=== PATIENT | female | born 1980 | race Caucasian/White ===

== ENCOUNTER 2016-07-27 07:53 | Inpatient (IN) ==
[2016-07-27] MEDS ORDERED: NITROGLYCERIN SL 0.4 MG TABLET SL PRN (08:09)
[2016-07-27] MEDS ORDERED: ASPIRIN 325 MG TABLET PO STA (08:09)
[2016-07-27] MEDS ORDERED: NITROGLYCERIN 2% OINT 1 INCH/GM PACK TOP STA (08:09)
[2016-07-27] MEDS ORDERED: ENOXAPARIN 100 MG/ML SYRINGE SUBCUT STA (08:09)
[2016-07-27] MEDS ORDERED: ALUM/MAG/SIMETH/LIDO VISC 1:1 30 ML BOTTLE PO STA (08:09)
[2016-07-27] MEDS ORDERED: ONDANSETRON 4 MG/2 ML VIAL IV PRN ×2 (08:09→11:07)
--- NOTE | 2016-07-27 08:14 | Emergency Department Note ---
Cora Muñiz Brittany, am scribing for, and in the presence of, Alfonso Shell MD 08: 12. Sumaya Muñiz James D, MD, personally performed the services described in this documentation, ascribed by Tianna Shepherd in my presence, and it is both accurate and complete 814 . Arrival - Arrival Chief Complaint: Chest Pain Stated Complaint: Chest Pains ED Nursing Triage Note: pain in center of chest that feels like something is sitting on her chest. started yesterday was worse when she woke up this morning. pain is worse with a deep breath. denies having been sick with a cough or cold. Mode of Arrival: Ambulatory Limitations: No Limitations Source: Patient - History of Present Illness HPI Narrative: This is a 35 y/o female,who presents to the ED with c/o CP which started yesterday. She reports the chest pain got worse this morning. She localizes the pain to the center of the chest. She describes the pain as a tightness and "something sitting on her chest." Per pt, " If I were to get up and walk, after a few minutes I would be winded." She reports diaphoresis with the CP, but states, as well, "That's not fair because I get sweaty easily." Pt reports seeing her PCP, Dr. Bae, "a few weeks ago" and everything was normal. Pt has no other complaints/pain in the ED at this time. Pt has a PMHx of HTN and kidney stones. Pt has had a tonsilectomy and knee surgery. Pt has a family medical Hx of heart disease. Pt is a former smoker, she quite 2 years ago, and reports she smoked 1/2 PPD. Onset (ago): day(s) (Started yesterday) Consistency: constant Severity: moderate Quality: other (Pressure) Allergies/Adverse Reactions: Allergies Allergy/AdvReac Type Severity Reaction Status Date / Time metoclopramide [From Reglan] AdvReac Irritable Verified 05/04/16 14:18 prochlorperazine AdvReac Irritable Verified 05/04/16 14:18 [From Compazine] Home Medications: Home Medications Medication Instructions Recorded Confirmed Type HYDROcodone/ACETAMIN 10-325 [[place] 1 tablet PO Q6H #20 tablet 03/13/15 Rx 10-325] Ibuprofen Tab [Motrin Tab] 800 mg PO Q6H #40 tablet 03/13/15 Rx HYDROcodone/ACETAMIN 5-325 [[place] 1 tablet PO Q6H #15 tablet 08/20/15 Rx 5-325] Naproxen Sodium [Naproxen Sodium 220 mg PO Q8H #30 capsule 08/20/15 Rx Cap] methylPREDNISolone DOSEPAK [Medrol 4 mg PO DIRECTED #1 pack 10/01/15 Rx Dosepak] Naproxen [Naprosyn] 500 mg PO Q12H #30 tablet 05/04/16 Rx Review of System - Review of System 12 point system: reviewed and no additional remarkable complaints except as stated - Review of System Constitutional: Present: diaphoresis Respiratory: Present: cough Cardiovascular: Present: chest pain, dyspnea on exertion Medical,Surgical,& Family Hx - Medical History Cardio: History of: Hypertension HEENT: History of: HEENT Problems (sinus surg) Genitourinary: History of: Kidney Stones Musculoskeletal: History of: Musculoskeletal Problems (Knee surg) - Surgical History HEENT Surgeries: Surgical HX of: Tonsilectomy & Adenoidectomy Orthopedic Surgeries: Surgical HX of;: Orthopedic Surgery (Knee surgery) - Social History Smoking Status: Never smoker Exam Vital Signs: Vital Signs Temperature 98.1 F 07/27/16 07:55 Pulse Rate 104 H 07/27/16 07:55 Respiratory Rate 20 07/27/16 07:55 Blood Pressure 174/107 07/27/16 07:55 O2 Sat by Pulse Oximetry 100 07/27/16 07:55 GENERAL: This is a well-nourished well-developed morbidly obese white female in no apparent distress. VITAL SIGNS: Reviewed HEENT: Head is atraumatic and normocephalic. Pupils are equal round react to light. Extraocular movements are intact. Oropharynx is benign with moist mucous membranes. NECK: Neck is soft and supple without tenderness. There are no masses. There is no lymphadenopathy. LUNGS: Lungs are clear to auscultation. Chest rises symmetrically. There is no chest wall tenderness. CV: Heart is regular rate and rhythm without murmurs rubs or gallops. ABDOMEN: Abdomen is soft, nontender to palpation. There are no abdominal abnormal masses palpated. There is no organomegaly. Bowel sounds are present and active. SKIN: Skin is warm and dry. No rash. EXTREMITIES: Patient has full range of motion without tenderness. There is no pedal edema. NEUROLOGIC: Awake alert and oriented 4. Cranial nerves II through XII are grossly intact. Motor is 5 over 5 in all extremities bilaterally. Results - Labs CBC & BMP: 07/27/16 08:09 07/27/16 08:09 Lab Results: I have reviewed the patients labs - EKG EKG results: interpreted by ERMD - Impressions EKG: Normal sinus rhythm with rate of 97, nonspecific ST-T wave changes, normal axis. - Diagnostic Findings Procedure: Chest x-ray: image reviewed by me Disposition Clinical Impression: Chest pain, Essential hypertension Case discussed with: patient Disposition: Still a Patient Condition: Stable
[2016-07-27] MEDS ORDERED: ENOXAPARIN 120 MG/0.8 ML SYRINGE SUBCUT ONE (08:21)
[2016-07-27] MEDS ORDERED: ASPIRIN 325 MG TABLET ONE (08:22)
[2016-07-27] MEDS ORDERED: NITROGLYCERIN 2% OINT 1 INCH/GM PACK TOP ONE (08:22)
[2016-07-27] MEDS ORDERED: ALUM/MAG/SIMETH/LIDO VISC 1:1 30 ML BOTTLE PO ONE (08:22)
[2016-07-27 08:24] LABS: Basophils # 0.1 10*3/uL (0.0-0.2); Basophils % 0.9 % (0.0-0.8); Eosinophils # 0.3 10*3/uL (0.0-0.87); Eosinophils % 3.1 % (0.00-10.9); Hematocrit 43.7 VOL% (35.7-47.0); Hemoglobin 14.5 GM/DL (12.0-16.0); Immature Granulocytes % 0.4 %; Immature Granulocytes Absolute 0.04 #; Lymphocytes % 19.1 % (21.3-54.2); Mean Corpuscular HGB Conc 33.2 GM/DL (32-36); Mean Corpuscular Hemoglobin 29 PG (27-34); Mean Corpuscular Volume 88.5 FL (87-102); Mean Platelet Volume 8.7 FL (9.6-12.0); Monocytes # 0.5 10*3/uL (0.11-0.8); Monocytes % 5.1 % (1.7-12.7); Neutrophils # 7.5 10*3/uL (1.4-7.4); Neutrophils % 71.4 % (38.7-73.9); Platelet Count 374 T/CUMM (130-400); Red Blood Count 4.94 MC/CUMM (3.8-5.5); Red Cell Distribution Width 12.6 % (9.3-17.3); White Blood Count 10.5 T/CUMM (4-12)
[2016-07-27 08:35] LABS: PT Patient Result 10.7 SECS; Partial Thromboplastin Time 27.3 SECS (0-40)
--- NOTE | 2016-07-27 08:40 | XRay Report ---
XR chest 2V Indication: Chest pain. Chest 2 views: Comparison 10/01/2015. Normal heart size and mediastinal contour, clear lungs and obesity are again shown. No new infiltrates are seen. Impression: No acute cardiopulmonary disease. PROCEDURE INTERPRETED AT [facility] DEPARTMENT OF RADIOLOGY Final Report Signed by: Joshua Garner M.D.
[2016-07-27 08:59] LABS: Albumin 4.1 G/DL (3.4-5.0); Bilirubin,Total 0.4 MG/DL (0.2-1.0); Osmolality,Calculated 288.8 MOS/KG (273-304); Total Protein 7.6 G/DL (6.4-8.3)
[2016-07-27] MEDS ORDERED: ACETAMINOPHEN 325 MG TABLET PO PRN (11:07)
[2016-07-27] MEDS: SODIUM CHLORIDE 0.9% 1,000 ML IV SCH ×2 (11:34→19:57)
--- NOTE | 2016-07-27 13:15 | EKG Report ---
Stationary ECG Study [facility] ER Test Date: 07/27/2016 8:01:45 AM Pat Name: FLORA SOSA Department: Room: 293 Gender: F Leather Cleaner: : 1980 Requested by: Alfonso Cho Order Number: [id number] Reading MD: MEENU BLEDSOE Intervals [place] Rate: 97 P: 54 ND: 151 QRS: 74 QRSD: 105 T: 14 QT: 316 QTc: 370 Interpretive Statements SINUS RHYTHM Electronically Signed On 07-28-16 06:54:30 CDT by MEENU BLEDSOE [email or web address]
--- NOTE | 2016-07-27 13:18 | EKG Report ---
Stationary ECG Study [facility] Test Date: 07/27/2016 12:18:56 PM Pat Name: FLORA SOSA Department: Room: 293 Gender: F Nurse Clinician: JES : 1980 Requested by: Alfonso Cho Order Number: [id number] Erica MD: CHARBEL BLANCA Intervals [place] Rate: 75 P: 4 AL: 158 QRS: 107 QRSD: 108 T: 1 QT: 352 QTc: 382 Interpretive Statements SINUS RHYTHM MARKED RIGHT AXIS DEVIATION Electronically Signed On 07-28-16 12:16:35 CDT by CHARBEL BLANCA [email or web address]
[2016-07-27] MEDS ORDERED: NITROGLYCERIN 2% OINT 1 INCH/GM PACK TOP SCH (14:00)
--- NOTE | 2016-07-27 14:25 | EKG Report ---
Stationary ECG Study [facility] Test Date: 07/27/2016 2:24:49 PM Pat Name: FLORA SOSA Department: Room: 293 Gender: F Tie Layer: JES : 1980 Requested by: Alfonso Cho Order Number: [id number] Reading MD: CHARBEL BLANCA Intervals [place] Rate: 77 P: 35 [place]: 149 QRS: 106 QRSD: 112 T: -2 QT: 358 QTc: 390 Interpretive Statements SINUS RHYTHM MARKED RIGHT AXIS DEVIATION MODERATE INTRAVENTRICULAR CONDUCTION DELAY Electronically Signed On 07-28-16 12:20:05 CDT by CHARBEL BLANCA [email or web address]
--- NOTE | 2016-07-27 14:32 | Cardiology Consult Note ---
<Daphnie Martinez E - Last Filed: 07/27/16 14:24> Assessment and Plan - Time spent with patient Time spent with patient: Greater than 30 minutes (1) Obesity Status: Chronic Assessment and plan: Dietary counseling prior to discharge. Will check TSH Current Visit: Yes (2) Sleep disorder Status: Chronic Assessment and plan: Consult Dr. Riya Adam Current Visit: Yes (3) Chest pain Status: Acute Assessment and plan: See plan of care listed below Current Visit: Yes (4) Essential hypertension Status: Chronic Assessment and plan: See plan of care listed below Current Visit: Yes History of Present Illness - Data of Consult Patient: new to practice Consult date: 07/27/16 Requesting Physician: Umesh Bae Primary care physician: Umesh Bae - Consult Narrative Reason for consult: Chest pain History of present illness: Ms. Barker is a 35 year old female not previously followed by cardiology. Risk factors include: Hypertension, morbid obesity, remote tobaccoism. Patient presented to the emergency department at [facility] today after experiencing 2 days of intermittent chest discomfort described as pressure in the center of her chest. Initially, this started around 0900 Wednesday morning. It waxed and waned and she went to bed last night thinking it would be better this morning. This morning she awoke with the continued discomfort in the center of her chest. There is no radiation. Certain positions make this worse, taking a deep breath does not make this worse but she can feel the pressure as she takes a deep breath. Is not associated with shortness of breath, nausea or diaphoresis. She can identify no alleviating factors. She is currently chest pain-free. When the chest discomfort was at its worst she rates as a 7 on a scale 1-10. She has never seen a fishery division chief in the past. She has not had stress testing, echocardiogram or cardiac catheterization. Cardiac biomarkers are negative. EKG is unremarkable. She is the mother of 4 boys and spends a lot of time chasing them. She can usually perform these activities without chest pain, heaviness, tightness or shortness of breath. Has no history of DVT or PE. She has recognized no recent swelling. She still has her menstrual cycle and completed her recent menstrual cycle on the . Her has had a vasectomy and she does not use any other form of control. is present and acknowledges that his snores loudly. She has had a tonsillectomy and still has Malampati Class III airway. Neck circumference is greater than 44 cm. She has never been tested for sleep apnea. At this time, she would like to eat and I can foresee no reason to keep her n.p.o. today. I will further discuss with Dr. Cathi Sun any additional cardiac testing necessary. Certainly, will verify she is taking a PPI, treat for musculoskeletal component and rule out for PE with venous ultrasound and d-dimer. Her weight may be prohibitive of stress testing inpatient and I will verify the weight limit with nuclear medicine. Will consult Dr. Riya Adam for evaluation of sleep disorder. ASSESSMENT/PLAN: 1. CHEST PAIN -cardiac biomarkers negative, EKG is unremarkable. See plan above. Will discuss with Dr. Cathi Sun and await additional recommendations. Echocardiogram 2. HYPERTENSION -patient reports good compliance with her medications. She tells me her blood pressure is usually easily regulated with ARB. 3. CLASS III OBESITY -dietary counseling prior to discharge 4. SLEEP DISORDER -consult Dr. Riya Adam. CC: Umesh Bae, DO - Home Medications and Allergies Home Medications: Home Medications Medication Instructions Recorded Confirmed Type Amlodipine Besylate/Benazepril 1 tablet PO BEDTIME 07/27/16 07/27/16 History [Amlodipine-Benazepril 10-20 mg] Allergies/Adverse Reactions: Allergies Allergy/AdvReac Type Severity Reaction Status Date / Time metoclopramide [From Reglan] AdvReac Irritable Verified 05/04/16 14:18 prochlorperazine AdvReac Irritable Verified 05/04/16 14:18 [From Compazine] Review of systems: REVIEW OF SYSTEMS: - Constitutional Constitutional: Present: Fatigue. Absent: syncope, anorexia, night sweats - EENT Eyes: Absent: blurry vision, loss of vision, diplopia Ears: Absent: decreased hearing, ear pain, ear discharge - Cardiovascular Cardiovascular: Present: chest pain with certain positions and not with exertion. Denies dyspnea on exertion, edema, palpitations. Acknowledges: chest pain with deep breath, denies claudication, - Respiratory Respiratory: Denies EAG[place], cough. Absent: wheezing, hemoptysis, change in phlegm color - Gastrointestinal Gastrointestinal: Denies constipation. Absent: abdominal pain, hematemesis, hematochezia, melena, change in bowel habits, nausea - Genitourinary Genitourinary: Absent: difficulty urinating, dysuria, urinary hesitancy, flank pain - Musculoskeletal Musculoskeletal: Present: back pain Absent: joint swelling, muscle cramps, muscle weakness - Neurological Neurological: Present: normal gait without frequent falls. Absent: dizziness, hemiparesis - Psychiatric Psychiatric: Absent: anxiety, depression, difficulty concentrating - Endocrine Endocrine: Absent: cold intolerance, heat intolerance, polyuria, polyphagia, polydipsia - Hematologic/Lymphatic Hematologic/Lymphatic: Present: easy bruising. Absent: easy bleeding -Integumentary Integumentary: Absent: lesions, rashes, skin breakdown Medical,Surgical,& Family Hx - Medical History Cardio: History of: Hypertension No history of: CAD, [place] HEENT: History of: HEENT Problems (sinus surg) Genitourinary: History of: Kidney Stones Musculoskeletal: History of: Musculoskeletal Problems (Knee surg) - Surgical History HEENT Surgeries: Surgical HX of: Tonsilectomy & Adenoidectomy Orthopedic Surgeries: Surgical HX of;: Orthopedic Surgery (Knee surgery) - Family History Family History: Reports;: Family Heart Disease, Family Hypertension - Social History Smoking Status: Former smoker Have you smoked in the last 12 months: No Frequency of Alcohol Use: None Type of Drug Use: None Marital Status: Lives With:: Spouse Functional capacity: independent ambulation Physical Examination Vital Signs Temp Pulse Resp BP Pulse Ox 98.1 F 104 H 20 174/107 100 07/27/16 07:55 07/27/16 07:55 07/27/16 07:55 07/27/16 07:55 07/27/16 07:55 General: [Appears well with no apparent distress.] [Pleasant and cooperative. ] [Appears comfortable.] HEENT: [PERRL, normocephalic, atraumatic. Mucous membranes moist. No jaundice noted. Conjunctiva moist and clear, sclerae anicteric] Neck: No JVD/HJR, no thyromegaly or lymphadenopathy noted. No carotid bruit appreciated Cardiac: [Regular rate and rhythm.] [No murmur rub or gallop.] Lungs: [Clear to auscultation without accessory muscle use to assist the respiratory pattern.] Not requiring oxygen Abdomen: Soft, bowel sounds normoactive. Nontender and nondistended. No abdominal bruit or thrill noted. No masses noted. Musculoskeletal: No fluid collection. Decreased range of motion is noted. Extremities: No clubbing, cyanosis noted. [ No edema noted.] Upper extremity pulses 2+. Lower extremity pulses 2+. Capillary refill less than 3 seconds. Skin: No unusual lesions or rashes. No skin breakdown appreciated. Neuro: Awake, alert and oriented 3. Moves all extremities well without hemiparesis or paralysis. No essential tremor is appreciated. Result/EKG - Labs CBC & BMP: 07/27/16 08:09 07/27/16 08:09 Lab Results: I have reviewed the past 24 hour labs Labs: Laboratory Results - last 24 hr 07/27/16 11:07 Troponin I < 0.015 - Diagnostic Findings Procedure: Chest x-ray: report reviewed by me - EKG EKG results: interpreted by me EKG shows: sinus rhythm <Cathi Sun - Last Filed: 07/27/16 17:21> History of Present Illness - Consult Narrative History of present illness: I have personally interviewed and evaluated the patient, reviewed the chart and discussed medical decision-making with Practitioner Michelle. I have read this note and agree with her documentation here in with the following clarifications and exceptions: She has atypical chest pain that is entirely reproducible to palpation. Is related to activity, has been occurring for hours and began after new exertional upper body strain from gardening. We are going to treat her with anti-inflammatories. Her nitroglycerin has been discontinued due to the provocation of a migraine. Cardiac biomarkers have remained negative and her ECG is not concerning. Hopefully we can get her symptoms feeling better so that she may be discharged home soon. Other than her echocardiogram for further risk stratification I do not believe that she will require further cardiac workup. CC: Umesh Bae, DO Physical Examination Vital Signs Temp Pulse Resp BP Pulse Ox 98.1 F 104 H 20 174/107 100 07/27/16 07:55 07/27/16 07:55 07/27/16 07:55 07/27/16 07:55 07/27/16 07:55 Result/EKG - Labs CBC & BMP: 07/27/16 08:09 07/27/16 08:09 Labs: Laboratory Results - last 24 hr 07/27/16 07/27/16 07/27/16 11:07 14:11 14:11 D-Dimer, Quantitative Troponin I < 0.015 < 0.015 Free T4 1.08 TSH 3rd Generation 0.180 L 07/27/16 14:53 D-Dimer, Quantitative <= 0.5 Troponin I Free T4 TSH 3rd Generation
[2016-07-27] MEDS: traMADol 50 MG TABLET PO SCH ×3 (15:00→21:01)
[2016-07-27] MEDS ORDERED: GABAPENTIN 100 MG CAPSULE PO SCH (15:00)
[2016-07-27] MEDS: ACETAMINOPHEN 325 MG TABLET PO SCH ×3 (15:00→21:03)
[2016-07-27 15:26] LABS: Free T4 (Free Thyroxine) 1.08 NG/DL (0.76-1.46); Thyroid Stimulating Hormone 0.18 uIU/ml (0.358-3.74)
--- NOTE | 2016-07-27 16:35 | Sleep Medicine Consult ---
Assessment and Plan (1) Sleep disorder Status: Chronic Assessment and plan: It is possible that this patient does have mild obstructive sleep apnea. Her symptoms are very mild. Her has not witnessed any abnormal breathing during her sleep. She is actively engaged in losing weight. We are unable to do HST evaluation on her tonight due to unavailability of the device. At this point, rather than setting her up for formal polysomnography or HST, I have recommended that she continue to aggressively work on getting her weight down. If her symptoms with regard to snoring and sleep disruption progress, I will see her back in the sleep clinic. Thank you for this consult and the opportunity to participate in her care. Current Visit: Yes (2) Essential hypertension Status: Chronic Assessment and plan: The prevalence rate for obstructive sleep apnea patients with hypertension is 35 %. That rate can be as high as 80% in patients who require 4 or more medications for blood pressure control. Current Visit: Yes (3) Obesity Status: Chronic Assessment and plan: Patient encouraged to continue to work on weight loss thru appropriate dieting and exercise. The combination of weight loss and CPAP therapy for obstructive sleep apnea is better than either therapy alone for obstructive sleep apnea. Weight loss can be effective therapy alone for mild obstructive sleep apnea which I think this patient most likely has. If her symptoms get worse, with increasing snoring or abnormal breathing during sleep, or increased sleepiness, sleep evaluation should be done, and she will contact our clinic. Current Visit: Yes History of Present Illness Chief complaint: Sleep apnea History of present illness: Ms. Barker is a 35 year old female admitted with atypical chest pain. During the course of her evaluation it was noted that she snores and sleep medicine was consulted. The is at the bedside. The patient does describe a history of snoring but this does not describe it is loud or obnoxious. He is not aware of her having any abnormal breathing during her sleep and has never witnessed her stop breathing during her sleep. She denies awakening from sleep short of breath and usually feels refreshed upon awakening. She only awakens up to once a night to urinate but usually sleeps throughout the night. She denies any symptoms of daytime fatigue and sleepiness, having a normal [place] sleepiness score of 7. She is not aware of any issues with restlessness of her legs or leg jerks. She does have a history of hypertension and is followed by Dr. Umesh Bae regularly. She states that she has lost about 50 pounds of weight in the past year and is continuing to work on weight loss. Home Medications Medication Instructions Recorded Confirmed Type Amlodipine Besylate/Benazepril 1 tablet PO BEDTIME 07/27/16 07/27/16 History [Amlodipine-Benazepril 10-20 mg] Allergies Allergy/AdvReac Type Severity Reaction Status Date / Time metoclopramide [From Reglan] AdvReac Irritable Verified 05/04/16 14:18 prochlorperazine AdvReac Irritable Verified 05/04/16 14:18 [From Compazine] Review of systems: Otherwise unremarkable from a sleep standpoint. Exam (Pulmonay) H&P - Constitutional Vitals: Period Temp Pulse Resp BP Sys/[place] Pulse Ox Last 24 Hr 98.1 F-98.9 F 83-90 18-18 123-139/61-75 97-98 Exam: She is alert and responsive. She has a 16.5 inch circumference of the neck. Oropharynx with a class III Mallampati exam. Pupils equal round reactive to light and accommodation. Extraocular movements intact. Chest with symmetrical breath sounds without focal wheeze, rhonchi, or rales. Cardiac exam reveals a regular rhythm without murmur or gallop. Abdomen soft nontender without palpable hepatosplenomegaly or mass. Extremities are without clubbing, cyanosis , or edema. Neurologically, she is grossly intact. She moves all extremities with good strength. Medical,Surgical,& Family Hx - Medical History Cardio: History of: Hypertension No history of: CAD, [place] HEENT: History of: HEENT Problems (sinus surg) Genitourinary: History of: Kidney Stones Musculoskeletal: History of: Musculoskeletal Problems (Knee surg) - Surgical History HEENT Surgeries: Surgical HX of: Tonsilectomy & Adenoidectomy Orthopedic Surgeries: Surgical HX of;: Orthopedic Surgery (Knee surgery) - Family History Family History: Reports;: Family Heart Disease, Family Hypertension - Social History Smoking Status: Former smoker Frequency of Alcohol Use: None Type of Drug Use: None Results - Labs CBC & BMP: 07/27/16 08:09 07/27/16 08:09 Lab Results: I have reviewed the past 24 hour labs
[2016-07-27] MEDS ORDERED: KETOROLAC 30 MG/1 ML VIAL IV ONE (17:22)
[2016-07-27] MEDS ORDERED: MORPHINE 2 MG/1 ML SYRINGE IV ONE (17:29)
[2016-07-27] MEDS ORDERED: ENOXAPARIN 40 MG/0.4 ML SYRINGE SUBCUT SCH (17:30)
[2016-07-27 17:48] LABS: Barbiturates Screen,Urine Negative (Negative); Benzodiazepines Screen,Urine Negative (Negative); Cannabinoid Screen,Urine Negative (Negative); Opiate Screen,Urine Positive (Negative); Phencyclidine Screen,Urine Negative (Negative)
--- NOTE | 2016-07-27 18:55 | Family Practice History&Phys ---
Assessment and Plan (1) Chest pain Status: Acute Assessment and plan: We will treat symptoms and continue to monitor overnight. Enzymes and EKGs have remained unremarkable. Will obtain cardiology consult Current Visit: Yes (2) Probable anterior chest wall pain Status: Acute Assessment and plan: We will start on anti-inflammatory medications and moist heat Current Visit: Yes (3) Essential hypertension Status: Chronic Assessment and plan: We will resume medications and monitor closely Current Visit: Yes (4) Obesity Status: Chronic Assessment and plan: Patient is on a weight reduction program at present. She has lost 50 pounds over the last year. We will continue to stress the diet and exercise Current Visit: Yes History of Present Illness Chief complaint: Chest pain History of present illness: Ms. Barker is a 35 year old female Patient 35-year-old white female admitted to the emergency room with chest pain. Pain is developed over the last 2 days. The patient initially described the pain is a pressure type sensation but now feels is more of a sharp continuous pain is worse with movement or deep inspiration. She has had similar pain in the past but never this severe. Patient states that she awoke this a.m. and pain had progressively gotten worse. States the pain was a 7 or 8 on a scale 1-10. Denies nausea vomiting or diaphoresis. She was seen in emergency room and enzymes and EKG were unremarkable. Inferior degree of pain she was admitted for further evaluation therapy Home Medications Medication Instructions Recorded Confirmed Type Amlodipine Besylate/Benazepril 1 tablet PO BEDTIME 07/27/16 07/27/16 History [Amlodipine-Benazepril 10-20 mg] Allergies Allergy/AdvReac Type Severity Reaction Status Date / Time metoclopramide [From Reglan] AdvReac Irritable Verified 05/04/16 14:18 prochlorperazine AdvReac Irritable Verified 05/04/16 14:18 [From Compazine] Medical,Surgical,& Family Hx - Medical History Cardio: History of: Hypertension No history of: CAD, [place] HEENT: History of: HEENT Problems (sinus surg) Genitourinary: History of: Kidney Stones Musculoskeletal: History of: Musculoskeletal Problems (Knee surg) - Surgical History HEENT Surgeries: Surgical HX of: Tonsilectomy & Adenoidectomy Orthopedic Surgeries: Surgical HX of;: Orthopedic Surgery (Knee surgery) - Family History Family History: Reports;: Family Heart Disease, Family Hypertension - Social History Smoking Status: Former smoker Frequency of Alcohol Use: None Type of Drug Use: None Marital Status: Lives With:: Spouse Functional capacity: independent ambulation Exam - Constitutional Vitals: Period Temp Pulse Resp BP Sys/Corona Pulse Ox Last 24 Hr 98.1 F-98.9 F 83-90 18-18 123-139/61-75 97-98 General appearance: mild distress - Head Head exam: Present: normal inspection - ENT ENT exam: Present: normal exam - Neck Neck exam: Present: normal inspection - Respiratory Respiratory exam: Present: clear to auscultation bilaterally - Cardiovascular Cardiovascular exam: Present: regular rate and rhythm, other (Patient has tenderness over the anterior chest wall reproduces some of her complaints) - GI/Abdominal GI/Abdominal exam: Present: normal bowel sounds, soft - Extremities Exam Extremities exam: Present: normal inspection - Back Exam Back exam: Present: normal inspection - Neurological Exam Neurological exam: Present: alert, oriented X3 - Psychiatric Psychiatric exam: Present: normal affect - Skin Skin exam: Present: normal color Results - Labs CBC & BMP: 07/27/16 08:09 07/27/16 08:09
--- NOTE | 2016-07-27 19:02 | ECHO Report ---
Krystle Barker Exam Date: 07/27/2016 15:07 Referring Physician: Technologist: La Jones RDCS Age: 35 Ht (in): 65 Wt (lb): 290 Gender: F Exam Location: [facility] Echo Indications: Chest pain, unspecified, Sleep disorder, Essential (primary) hypertension, Morbid (severe) obesity due to excess calories, Chronic fatigue, unspecified BP: 131 / 71 HR: 89 Rhythm: Sinus Technical Quality: Technically difficult study IMPRESSIONS Normal LV systolic and diastolic function, ejection fraction 55%. Trace tricuspid regurgitation. MEASUREMENTS (Male / Female) Normal Values 2D ECHO LV Diastolic Diameter PLAX 4.1 cm 4.2 - 5.9 / 3.9 - 5.3 cm LV Systolic Diameter PLAX 2.0 cm LV Fractional Shortening PLAX 49.8 % IVS Diastolic Thickness 1.1 cm 0.6 - 1.0 / 0.6 - 0.9 cm LVPW Diastolic Thickness 1.1 cm 0.6 - 1.0 / 0.6 - 0.9 cm RV Internal Dim ED PLAX 2.9 cm Aortic Root Diameter 3.5 cm LA Systolic Diameter LX 3.5 cm 3.0 - 4.0 / 2.7 - 3.8 cm FINDINGS Left Ventricle Normal left ventricular cavity size. Mild left ventricular hypertrophy. Left ventricular ejection fraction is estimated at 55 %. Right Ventricle The right ventricle is normal in size and function. Right Atrium The right atrium is normal in size. Left Atrium The left atrium is normal in size. Mitral Valve Morphologically normal mitral valve without significant stenosis or prolapse. There is no mitral regurgitation. Aortic Valve Morphologically normal aortic valve without significant sclerosis or stenosis. There is no aortic regurgitation. Tricuspid Valve Morphologically normal tricuspid valve. Trace tricuspid valve regurgitation. Pulmonic Valve Morphologically normal pulmonic valve without significant stenosis. There is no pulmonic regurgitation. Pericardium Normal pericardium without effusion. Aorta Normal ascending aorta dimension. Cathi Sun MD (Electronically Signed) Final Date: 27 July 2016 19:01
[2016-07-27] MEDS: methylPREDNISolone SOD SUC 40 MG/1 ML VIAL IV SCH (19:56)
[2016-07-27] MEDS: DOCUSATE SODIUM 100 MG CAPSULE PO SCH (21:02)
[2016-07-27] MEDS ORDERED: ENOXAPARIN 150 MG/ML SYRINGE SUBCUT SCH (22:00)
[2016-07-27] MEDS: MORPHINE 2 MG/1 ML SYRINGE SUBCUT PRN (22:04)
[2016-07-28] MEDS ORDERED: KETOROLAC 30 MG/1 ML VIAL IV ONE (00:01)
[2016-07-28] MEDS: MORPHINE 2 MG/1 ML SYRINGE SUBCUT PRN (01:41)
[2016-07-28] MEDS: methylPREDNISolone SOD SUC 40 MG/1 ML VIAL IV SCH (03:03)
[2016-07-28] MEDS: SODIUM CHLORIDE 0.9% 1,000 ML IV SCH (03:07)
[2016-07-28 03:26] LABS: Basophils % 0.2 % (0.0-0.8); Eosinophils % 0.2 % (0.00-10.9); Hematocrit 36.6 VOL% (35.7-47.0); Hemoglobin 12.6 GM/DL (12.0-16.0); Immature Granulocytes % 0.3 %; Immature Granulocytes Absolute 0.02 #; Lymphocytes # 0.8 10*3/uL (1.4-4.0); Lymphocytes % 12.6 % (21.3-54.2); Mean Corpuscular HGB Conc 34.4 GM/DL (32-36); Mean Corpuscular Hemoglobin 30 PG (27-34); Mean Corpuscular Volume 87.1 FL (87-102); Mean Platelet Volume 9.2 FL (9.6-12.0); Monocytes % 0.6 % (1.7-12.7); Neutrophils # 5.6 10*3/uL (1.4-7.4); Neutrophils % 86.1 % (38.7-73.9); Platelet Count 361 T/CUMM (130-400); Red Cell Distribution Width 12.6 % (9.3-17.3); White Blood Count 6.5 T/CUMM (4-12)
[2016-07-28 03:58] LABS: Calcium 8.7 MG/DL (8.5-10.1); Osmolality,Calculated 287.1 MOS/KG (273-304); Potassium 4.3 MMOL/L (3.5-5.1)
--- NOTE | 2016-07-28 07:45 | Discharge Summary ---
Hospital Course - Hospital Course Hospital Course: History of present illness: Ms. Barker is a 35 year old female Patient 35-year-old white female admitted to the emergency room with chest pain. Pain is developed over the last 2 days. The patient initially described the pain is a pressure type sensation but now feels is more of a sharp continuous pain is worse with movement or deep inspiration. She has had similar pain in the past but never this severe. Patient states that she awoke this a.m. and pain had progressively gotten worse. States the pain was a 7 or 8 on a scale 1-10. Denies nausea vomiting or diaphoresis. She was seen in emergency room and enzymes and EKG were unremarkable. Inferior degree of pain she was admitted for further evaluation therapy Hospital course-patient was admitted to hospital lab and x-ray studies obtained. Isoenzymes and EKGs remain unremarkable. Patient was seen in consultation by Dr. Sun a local education sales consultant. Her pain was atypical and felt to be chest wall in nature.. She was also seen by Dr. Nadia Adam a local sleep specialist. He did not be believe that she would benefit from a sleep study and recommended to continue weight loss and exercise. She is improved this a.m. labs remain stable vitals are stable. Wants to be discharged to home. Will discharge to home and continue medications and plan to follow-up in the clinic in 1 week or sooner as needed. Call or come to the emergency room condition worsening problems develop Diagnosis - Discharge Diagnosis (1) Chest pain Status: Acute (2) Probable anterior chest wall pain Status: Acute (3) Essential hypertension Status: Chronic (4) Obesity Status: Chronic Specialty Discharge - Follow Up or Referrals Follow up with: Umesh Bae DO [Physician] - 08/04/16 10:15 am Discharge Plan - Discharge Data Disposition: Disch To Home/Self Care Condition at Discharge: Stable Discharge Diet: advance to your usual diet Activity: resume usual activities as tolerated Hygiene: no restrictions Weight Bearing at Discharge: full weight bearing Contact your physician if you experience:: fever over 101, Shortness of breath - Discharge Medications New HYDROcodone/ACETAMIN 10-325 [[place] 10-325] 1 tablet PO Q4H PRN #30 tablet PRN Reason: Pain Moderate (4-7) methylPREDNISolone TAB [Medrol] 8 mg PO .DOSEPAK ENTER TAPER #21 tablet Continue Amlodipine Besylate/Benazepril [Amlodipine-Benazepril 10-20 mg] 1 tablet PO BEDTIME - Follow Up or Referral Follow Up: Umesh Bae DO [Physician] - 08/04/16 10:15 am - Forms/Instructions Instructions: Chest Wall Pain (GEN) Exam - Constitutional Vitals: Period Temp Pulse Resp BP Sys/Corona Pulse Ox Last 24 Hr 97.5 F-98.9 F 68-90 18-20 98-147/54-86 96-98 General appearance: no acute distress - Head Head exam: Present: normal inspection - ENT ENT exam: Present: normal exam - Neck Neck exam: Present: normal inspection - Respiratory Respiratory exam: Present: clear to auscultation bilaterally - Cardiovascular Cardiovascular exam: Present: regular rate and rhythm - GI/Abdominal GI/Abdominal exam: Present: normal bowel sounds, soft - Extremities Exam Extremities exam: Present: normal inspection - Back Exam Back exam: Present: normal inspection - Neurological Exam Neurological exam: Present: alert, oriented X3 - Psychiatric Psychiatric exam: Present: normal affect - Skin Skin exam: Present: normal color Discharge Results Labs on day of discharge: Labs from last 24 hours 07/28/16 07/28/16 07/27/16 02:44 02:44 Unknown WBC 6.5 D RBC 4.20 Hgb 12.6 Hct 36.6 MCV 87.1 MCH 30 MCHC 34.4 RDW 12.6 Plt Count 361 MPV 9.2 L Neut % (Auto) 86.1 H Lymph % (Auto) 12.6 L [place] % (Auto) 0.6 L Eos % (Auto) 0.2 Baso % (Auto) 0.2 Neut # (Auto) 5.6 Lymph # (Auto) 0.8 L [place] # (Auto) 0.0 L Eos # (Auto) 0.0 Baso # (Auto) 0.0 Immature Gran % 0.3 Nucleated RBC % 0.0 Immature Gran # 0.02 Nucleated RBCs # 0.00 D-Dimer, Quantitative Sodium 142 Potassium 4.3 Chloride 110 H Carbon Dioxide 23 Anion Gap 13.3 BUN 13 Creatinine 0.90 GFR Calculation 111 BUN/Creatinine Ratio 14.00 Glucose 197 H Calculated Osmolality 287.1 Calcium 8.7 Troponin I Free T4 TSH 3rd Generation Urine Opiates Screen Positive H Ur Barbiturates Screen Negative Ur Phencyclidine Scrn Negative U Amphetamine/Methamph Negative U Benzodiazepines Scrn Negative U Cocaine Metab Screen Negative U Cannabinoids Screen Negative 07/27/16 07/27/16 07/27/16 14:53 14:11 14:11 WBC RBC Hgb Hct MCV MCH MCHC RDW Plt Count MPV Neut % (Auto) Lymph % (Auto) [place] % (Auto) Eos % (Auto) Baso % (Auto) Neut # (Auto) Lymph # (Auto) [place] # (Auto) Eos # (Auto) Baso # (Auto) Immature Gran % Nucleated RBC % Immature Gran # Nucleated RBCs # D-Dimer, Quantitative <= 0.5 Sodium Potassium Chloride Carbon Dioxide Anion Gap BUN Creatinine GFR Calculation BUN/Creatinine Ratio Glucose Calculated Osmolality Calcium Troponin I < 0.015 Free T4 1.08 TSH 3rd Generation 0.180 L Urine Opiates Screen Ur Barbiturates Screen Ur Phencyclidine Scrn U Amphetamine/Methamph U Benzodiazepines Scrn U Cocaine Metab Screen U Cannabinoids Screen 07/27/16 11:07 WBC RBC Hgb Hct MCV MCH MCHC RDW Plt Count MPV Neut % (Auto) Lymph % (Auto) [place] % (Auto) Eos % (Auto) Baso % (Auto) Neut # (Auto) Lymph # (Auto) [place] # (Auto) Eos # (Auto) Baso # (Auto) Immature Gran % Nucleated RBC % Immature Gran # Nucleated RBCs # D-Dimer, Quantitative Sodium Potassium Chloride Carbon Dioxide Anion Gap BUN Creatinine GFR Calculation BUN/Creatinine Ratio Glucose Calculated Osmolality Calcium Troponin I < 0.015 Free T4 TSH 3rd Generation Urine Opiates Screen Ur Barbiturates Screen Ur Phencyclidine Scrn U Amphetamine/Methamph U Benzodiazepines Scrn U Cocaine Metab Screen U Cannabinoids Screen DS: Provider Date of admission: 07/27/16 09:35 Primary care physician: . No PCP Attending physician on admission: Umesh Bae DO Consults: 07/27/16 11:07 Consult to Case Mgmt/Social Srvs [CONS] Routine Reason for Case Mgmt/Social Srvs: Discharge Planning Consult to Physician [CONS] Routine Comment: chest pain Consulting Provider: Cathi Sun Consult to Specialist Group: Cardiology Person Notified: [email or web address] Date Notified: 07/27/16 Time Notified: 11:15 07/27/16 11:13 Consult to Pharmacy [CONS] Routine Reason for Pharmacy Consult: Adjust Meds Renal Funct 07/27/16 14:37 Consult to Sleep Center [CONS] Routine Reason for Sleep Center: Sleep Center Physician Consult Comment: sleep disorder Discharging clinician: Umesh Bae DO
[2016-07-28] MEDS ORDERED: methylPREDNISolone 4 MG TABLET PO SCH ×2 (08:00)
[2016-07-28 08:13] VITALS: BP 137/85
[2016-07-28] MEDS: DOCUSATE SODIUM 100 MG CAPSULE PO SCH (08:33)
[2016-07-28] MEDS: ACETAMINOPHEN 325 MG TABLET PO SCH (08:33)
[2016-07-28] MEDS: traMADol 50 MG TABLET PO SCH (08:36)
[2016-07-28] MEDS ORDERED: PANTOPRAZOLE 40 MG TABLET PO SCH (09:00)
== END 2016-07-28 09:47 | disposition home or self-care (01) | DRG 313 ==
LOC: N.ED 07:53 → N.EDINP 09:35 → N.TELEN 10:47
PROVIDERS: ADMIT Family Medicine; ATTEND Family Medicine

== ENCOUNTER 2019-07-17 07:40 | Inpatient (IN) ==
[2019-07-17] MEDS ORDERED: SODIUM CHLORIDE 0.9% 1,000 ML IV STA (08:24)
[2019-07-17] MEDS ORDERED: ONDANSETRON 4 MG/2 ML VIAL IV STA ×2 (08:24→10:54)
[2019-07-17 08:37] LABS: Basophils # 0.2 10*3/uL (0.0-0.2); Basophils % 2.4 % (0.0-0.8); Eosinophils # 0.4 10*3/uL (0.0-0.87); Eosinophils % 5.8 % (0.00-10.9); Hematocrit 40.6 VOL% (35.7-47.0); Hemoglobin 12.9 GM/DL (12.0-16.0); Immature Granulocytes % 0.2 %; Immature Granulocytes Absolute 0.01 #; Lymphocytes # 2.1 10*3/uL (1.4-4.0); Lymphocytes % 34.2 % (21.3-54.2); Mean Corpuscular HGB Conc 31.8 GM/DL (32-36); Mean Corpuscular Volume 87.7 FL (87-102); Mean Platelet Volume 8.5 FL (9.6-12.0); Monocytes % 11.3 % (1.7-12.7); Neutrophils % 46.1 % (38.7-73.9); Platelet Count 424 T/CUMM (130-400); Red Blood Count 4.63 MC/CUMM (3.8-5.5); Red Cell Distribution Width 18.3 % (9.3-17.3); White Blood Count 6.2 T/CUMM (4-12)
[2019-07-17 09:14] LABS: Albumin 3.4 G/DL (3.4-5.0); Bilirubin,Total 0.7 MG/DL (0.2-1.0); Calcium 8.7 MG/DL (8.5-10.1); Total Protein 7.1 G/DL (6.4-8.3)
[2019-07-17] MEDS ORDERED: HYDROmorphone 2 MG/1 ML VIAL ONE (10:24)
[2019-07-17] MEDS ORDERED: HYDROmorphone 2 MG/1 ML VIAL IV STA (10:53)
[2019-07-17] MEDS ORDERED: HYDROmorphone 2 MG/1 ML VIAL IV PRN ×2 (12:15→15:30)
[2019-07-17] MEDS ORDERED: ACETAMINOPHEN 325 MG TABLET PO PRN (12:15)
[2019-07-17] MEDS: ONDANSETRON 4 MG/2 ML VIAL IV PRN ×3 (13:27→23:29)
[2019-07-17] MEDS: SODIUM CHLORIDE 0.9% 1,000 ML IV SCH ×2 (13:32→21:16)
[2019-07-17 18:20] LABS: Apearance,Urine CLEAR (Clear); Bilirubin,Urine Negative (Negative); Blood, Urine Negative (Negative); Glucose,Urine (UA) Negative (Negative); Ketones,Urine Negative (Negative); Mucus,Urine Occasional /LPF (Occasional); Nitrite,Urine Negative (Negative); Protein,Urine Negative; RBC,Urine 2 /HPF (0-4); Squamous Epithelial Cell,Urine Occasional /HPF (0-10); Urine Color Yellow (Yellow); Urine Specific Gravity 1.028 (1.001-1.035); Urine Urobilinogen < 2.0 EU/DL (0.2-1.0); WBC,Urine 1 /HPF (0-6)
[2019-07-17] MEDS: HYDROmorphone 2 MG/1 ML VIAL IV PRN ×2 (19:39→23:29)
[2019-07-17] MEDS: DOCUSATE SODIUM 100 MG CAPSULE PO SCH (20:08)
[2019-07-18] MEDS: HYDROmorphone 2 MG/1 ML VIAL IV PRN ×3 (03:23→11:58)
[2019-07-18] MEDS: ONDANSETRON 4 MG/2 ML VIAL IV PRN ×2 (03:26→15:23)
[2019-07-18 05:39] LABS: Basophils # 0.1 10*3/uL (0.0-0.2); Basophils % 0.3 % (0.0-0.8); Hematocrit 44.8 VOL% (35.7-47.0); Immature Granulocytes % 0.4 %; Immature Granulocytes Absolute 0.12 #; Lymphocytes # 0.7 10*3/uL (1.4-4.0); Lymphocytes % 2.5 % (21.3-54.2); Mean Corpuscular HGB Conc 30.1 GM/DL (32-36); Mean Corpuscular Volume 93.5 FL (87-102); Monocytes % 4.2 % (1.7-12.7); NRBC # 0.03 10*3/uL; Neutrophils % 92.6 % (38.7-73.9); Platelet Count 392 T/CUMM (130-400); Red Blood Count 4.79 MC/CUMM (3.8-5.5); Red Cell Distribution Width 18.6 % (9.3-17.3); White Blood Count 28.5 T/CUMM (4-12)
[2019-07-18 05:49] LABS: Albumin 2.9 G/DL (3.4-5.0); Bilirubin,Total 0.7 MG/DL (0.2-1.0); Calcium 7.6 MG/DL (8.5-10.1); Osmolality,Calculated 273.1 MOS/KG (273-304); Total Protein 6.5 G/DL (6.4-8.3)
[2019-07-18 05:50] LABS: Risk Ratio 2.21; VLDL CHOLESTEROL 32.6 MG/DL
[2019-07-18 06:07] LABS: Hemoglobin 13.6 GM/DL (12.0-16.0)
[2019-07-18 06:10] LABS: Band Neutrophils 15 % (0-10); Eosinophils 1 % (0-10); Hypochromasia 1+; Lymphocytes 3 % (20-55); Microcytosis 1+; Segmented Neutrophils 80 % (50-85); Total Cells Counted 100
[2019-07-18 06:11] LABS: Anisocytosis 1+; Platelet Estimate Normal
[2019-07-18] MEDS ORDERED: MAGNESIUM SULF RIDER 2 GM in PREMIX 1 EACH IV ONE (07:34)
[2019-07-18] MEDS ORDERED: MAGNESIUM SULF INJ 2 GM in SODIUM CHLORIDE 0.9% 1,000 ML IV SCH (07:34)
[2019-07-18] MEDS ORDERED: MEROPENEM 1,000 MG in SODIUM CHLORIDE 0.9% 100 ML IV SCH (08:00)
[2019-07-18] MEDS ORDERED: MEROPENEM 2,000 MG in SODIUM CHLORIDE 0.9% 100 ML IV SCH (08:00)
[2019-07-18] MEDS ORDERED: HYDROmorphone 2 MG/1 ML VIAL IV PRN ×2 (08:27)
[2019-07-18] MEDS: SODIUM CHLORIDE 0.9% 1,000 ML IV SCH ×4 (08:34→19:28)
[2019-07-18] MEDS: CITALOPRAM 40 MG TABLET PO SCH (10:07)
[2019-07-18] MEDS: ESTRADIOL 2 MG TABLET PO SCH (10:07)
[2019-07-18] MEDS: DOCUSATE SODIUM 100 MG CAPSULE PO SCH ×2 (10:08→20:47)
[2019-07-18] MEDS: PANTOPRAZOLE 40 MG TABLET PO SCH (10:09)
[2019-07-18] MEDS: PROMETHAZINE 25 MG/1 ML VIAL IM PRN ×2 (11:40→20:47)
[2019-07-18] MEDS: PIPERACILLIN/TAZOBACTAM 3,375 MG in SODIUM CHLORIDE 0.9% 100 ML IV SCH ×2 (13:41→20:56)
[2019-07-18] MEDS: NICOTINE 14 MG/24 HR PATCH TRANSDERM SCH (17:37)
[2019-07-18] MEDS: MORPHINE 4 MG/1 ML VIAL IV PRN (20:53)
[2019-07-19] MEDS ORDERED: ALUMINUM/MAGNES/SIMETH MAX STR 30 ML UDCUP PO PRN (01:45)
[2019-07-19] MEDS: MORPHINE 4 MG/1 ML VIAL IV PRN ×3 (02:04→09:53)
[2019-07-19] MEDS: SODIUM CHLORIDE 0.9% 1,000 ML IV SCH ×5 (04:37→22:53)
[2019-07-19] MEDS: PIPERACILLIN/TAZOBACTAM 3,375 MG in SODIUM CHLORIDE 0.9% 100 ML IV SCH ×3 (04:40→21:01)
[2019-07-19] MEDS: PROMETHAZINE 25 MG/1 ML VIAL IM PRN ×3 (04:44→18:05)
[2019-07-19 05:49] LABS: Basophils # 0.1 10*3/uL (0.0-0.2); Basophils % 0.4 % (0.0-0.8); Hematocrit 36.5 VOL% (35.7-47.0); Immature Granulocytes % 1.4 %; Immature Granulocytes Absolute 0.33 #; Lymphocytes # 0.9 10*3/uL (1.4-4.0); Lymphocytes % 3.8 % (21.3-54.2); Mean Corpuscular HGB Conc 30.1 GM/DL (32-36); Mean Corpuscular Volume 93.8 FL (87-102); Mean Platelet Volume 9.7 FL (9.6-12.0); Monocytes % 5.4 % (1.7-12.7); Platelet Count 233 T/CUMM (130-400); Red Blood Count 3.89 MC/CUMM (3.8-5.5); Red Cell Distribution Width 18.7 % (9.3-17.3); White Blood Count 24.1 T/CUMM (4-12)
[2019-07-19 05:56] LABS: INR 1.2; PT Patient Result 12.6 SECS (9.6-12.2); Partial Thromboplastin Time 30.1 SECS (20.8-36.0)
[2019-07-19 06:10] LABS: Band Neutrophils 19 % (0-10); Lymphocytes 2 % (20-55); Metamyelocytes 2 %; Segmented Neutrophils 75 % (50-85); Total Cells Counted 100
[2019-07-19 06:11] LABS: Hypochromasia 1+; Microcytosis 1+
[2019-07-19 06:20] LABS: Albumin 2.1 G/DL (3.4-5.0); Bilirubin,Total 0.8 MG/DL (0.2-1.0); Osmolality,Calculated 280.5 MOS/KG (273-304); Total Protein 5.3 G/DL (6.4-8.3)
[2019-07-19 06:24] LABS: Folate 5.2 NG/ML (5.4-24.0)
[2019-07-19] MEDS: ESTRADIOL 2 MG TABLET PO SCH (08:28)
[2019-07-19] MEDS: DOCUSATE SODIUM 100 MG CAPSULE PO SCH ×2 (08:29→21:01)
[2019-07-19] MEDS: CITALOPRAM 40 MG TABLET PO SCH (08:29)
[2019-07-19] MEDS: FOLIC ACID 1 MG TABLET PO SCH (08:29)
[2019-07-19] MEDS: THIAMINE 200 MG/2 ML VIAL IV SCH (08:29)
[2019-07-19] MEDS: PANTOPRAZOLE 40 MG TABLET PO SCH (08:29)
[2019-07-19] MEDS: MULTIVITAMIN (CENTRUM) TABLET PO SCH (08:29)
[2019-07-19] MEDS: NICOTINE 14 MG/24 HR PATCH TRANSDERM SCH (08:52)
[2019-07-19] MEDS: LORazepam 2 MG/1 ML VIAL IV PRN ×2 (11:20→22:53)
[2019-07-19] MEDS: HYDROmorphone 2 MG/1 ML VIAL IV PRN ×4 (12:08→21:00)
[2019-07-19] MEDS ORDERED: PHENOL 1.4% THROAT SPRAY 177 ML BOTTLE PO PRN (12:50)
[2019-07-20] MEDS: HYDROmorphone 2 MG/1 ML VIAL IV PRN ×8 (02:33→23:53)
[2019-07-20] MEDS: SODIUM CHLORIDE 0.9% 1,000 ML IV SCH ×4 (03:55→19:13)
[2019-07-20] MEDS: LORazepam 2 MG/1 ML VIAL IV PRN ×2 (04:37→19:40)
[2019-07-20] MEDS: PIPERACILLIN/TAZOBACTAM 3,375 MG in SODIUM CHLORIDE 0.9% 100 ML IV SCH ×2 (04:38→12:48)
[2019-07-20 06:01] LABS: Basophils # 0.1 10*3/uL (0.0-0.2); Basophils % 0.8 % (0.0-0.8); Eosinophils % 0.2 % (0.00-10.9); Hemoglobin 9.4 GM/DL (12.0-16.0); Immature Granulocytes % 3.7 %; Immature Granulocytes Absolute 0.63 #; Lymphocytes # 1.1 10*3/uL (1.4-4.0); Lymphocytes % 6.4 % (21.3-54.2); Mean Corpuscular HGB Conc 30.3 GM/DL (32-36); Mean Corpuscular Volume 93.4 FL (87-102); Mean Platelet Volume 8.9 FL (9.6-12.0); Monocytes % 7.8 % (1.7-12.7); NRBC # 0.05 10*3/uL; Neutrophils % 81.1 % (38.7-73.9); Platelet Count 205 T/CUMM (130-400); Red Blood Count 3.32 MC/CUMM (3.8-5.5); Red Cell Distribution Width 19.4 % (9.3-17.3); White Blood Count 16.8 T/CUMM (4-12)
[2019-07-20 06:22] LABS: Albumin 1.9 G/DL (3.4-5.0); Bilirubin,Total 1.5 MG/DL (0.2-1.0); Osmolality,Calculated 272.2 MOS/KG (273-304); Total Protein 5.5 G/DL (6.4-8.3)
[2019-07-20 06:23] LABS: Calcium 5.7 MG/DL (8.5-10.1)
[2019-07-20 06:34] LABS: Band Neutrophils 15 % (0-10); Eosinophils 1 % (0-10); Hypochromasia 1+; Lymphocytes 6 % (20-55); Nucleated Red Blood Cells 1 (0-5); Promyelocytes 2 %; Segmented Neutrophils 73 % (50-85); Total Cells Counted 100
[2019-07-20 06:35] LABS: Microcytosis 1+
[2019-07-20] MEDS ORDERED: CALCIUM CHLORIDE 1,000 MG in SODIUM CHLORIDE 0.9% 100 ML IV ONE (08:00)
[2019-07-20] MEDS: PANTOPRAZOLE 40 MG TABLET PO SCH (08:49)
[2019-07-20] MEDS: PROMETHAZINE 25 MG/1 ML VIAL IM PRN ×4 (08:49→21:12)
[2019-07-20] MEDS: ESTRADIOL 2 MG TABLET PO SCH (08:49)
[2019-07-20] MEDS: DOCUSATE SODIUM 100 MG CAPSULE PO SCH ×2 (08:49→21:10)
[2019-07-20] MEDS: FOLIC ACID 1 MG TABLET PO SCH (08:49)
[2019-07-20] MEDS: CITALOPRAM 40 MG TABLET PO SCH (08:49)
[2019-07-20] MEDS: THIAMINE 200 MG/2 ML VIAL IV SCH (08:49)
[2019-07-20] MEDS: MULTIVITAMIN (CENTRUM) TABLET PO SCH (08:49)
[2019-07-20] MEDS: NICOTINE 14 MG/24 HR PATCH TRANSDERM SCH (08:57)
[2019-07-20] MEDS ORDERED: CALCIUM GLUCONATE 1,000 MG in SODIUM CHLORIDE 0.9% 100 ML IV ONE (18:30)
[2019-07-21] MEDS: PIPERACILLIN/TAZOBACTAM 3,375 MG in SODIUM CHLORIDE 0.9% 100 ML IV SCH ×3 (01:00→17:13)
[2019-07-21 03:03] LABS: Basophils # 0.1 10*3/uL (0.0-0.2); Basophils % 0.7 % (0.0-0.8); Eosinophils # 0.2 10*3/uL (0.0-0.87); Hematocrit 29.2 VOL% (35.7-47.0); Hemoglobin 8.6 GM/DL (12.0-16.0); Immature Granulocytes % 5.4 %; Immature Granulocytes Absolute 1.04 #; Lymphocytes # 1.5 10*3/uL (1.4-4.0); Lymphocytes % 7.6 % (21.3-54.2); Mean Corpuscular HGB Conc 29.5 GM/DL (32-36); Mean Corpuscular Volume 95.7 FL (87-102); Monocytes % 12.3 % (1.7-12.7); NRBC # 0.19 10*3/uL; Platelet Count 190 T/CUMM (130-400); Red Blood Count 3.05 MC/CUMM (3.8-5.5); Red Cell Distribution Width 19.5 % (9.3-17.3); White Blood Count 19.1 T/CUMM (4-12)
[2019-07-21 03:21] LABS: Allen Test Positive
[2019-07-21 03:22] LABS: ABG Base Excess -11.4 MMOL/L (-2.5-2.5); ABG HCO3 15.3 MMOL/L (20-26); ABG Oxygen Saturation 91.8 % (95-100); ABG PCO2 39.9 MM HG (35-48); ABG PO2 67.3 MM HG (80-95)
[2019-07-21 03:25] LABS: ABG PH 7.208 (7.35-7.45)
[2019-07-21 03:26] LABS: Albumin 1.9 G/DL (3.4-5.0); Bilirubin,Total 0.8 MG/DL (0.2-1.0); Osmolality,Calculated 270.4 MOS/KG (273-304); Total Protein 5.7 G/DL (6.4-8.3)
[2019-07-21 03:28] LABS: Calcium 5.8 MG/DL (8.5-10.1)
[2019-07-21 03:35] LABS: Band Neutrophils 8 % (0-10); Eosinophils 2 % (0-10); Lymphocytes 8 % (20-55); Metamyelocytes 1 %; Myelocytes 3 %; Nucleated Red Blood Cells 1 (0-5); Segmented Neutrophils 66 % (50-85); Total Cells Counted 100
[2019-07-21 03:36] LABS: Anisocytosis 1+; Ovalocytes 1+; Platelet Estimate Normal; Polychromasia 1+
[2019-07-21] MEDS: metOLazone 5 MG TABLET PO SCH (03:52)
[2019-07-21] MEDS ORDERED: SODIUM BICARBONATE 50 MEQ/50 ML VIAL IV ONE (03:57)
[2019-07-21] MEDS ORDERED: FUROSEMIDE INJ 160 MG in SODIUM CHLORIDE 0.9% 50 ML IV ONE (04:00)
[2019-07-21] MEDS ORDERED: ENOXAPARIN 150 MG/ML SYRINGE SUBCUT ONE (04:00)
[2019-07-21] MEDS: MORPHINE 4 MG/1 ML VIAL IV PRN (04:54)
[2019-07-21] MEDS: ONDANSETRON 4 MG/2 ML VIAL IV PRN ×3 (04:56→19:34)
[2019-07-21 05:36] LABS: Amorphous Crystals,Urine Few /HPF (Few); Apearance,Urine CLOUDY (Clear); Bilirubin,Urine Negative (Negative); Blood, Urine Large mg/dL (Negative); Glucose,Urine (UA) 50 mg/dL (Negative); Ketones,Urine Negative (Negative); Nitrite,Urine Negative (Negative); Protein,Urine 30 MG/DL; RBC,Urine 4 /HPF (0-4); Squamous Epithelial Cell,Urine Occasional /HPF (0-10); Urine Color Yellow (Yellow); Urine Specific Gravity 1.014 (1.001-1.035); Urine Urobilinogen < 2.0 EU/DL (0.2-1.0)
[2019-07-21] MEDS ORDERED: FUROSEMIDE 40 MG/4 ML VIAL IV ONE (07:59)
[2019-07-21] MEDS: NICOTINE 14 MG/24 HR PATCH TRANSDERM SCH (08:36)
[2019-07-21] MEDS: PANTOPRAZOLE 40 MG TABLET PO SCH (09:18)
[2019-07-21] MEDS: DOCUSATE SODIUM 100 MG CAPSULE PO SCH ×2 (09:18→21:18)
[2019-07-21] MEDS: CITALOPRAM 40 MG TABLET PO SCH (09:18)
[2019-07-21] MEDS: ESTRADIOL 2 MG TABLET PO SCH (09:18)
[2019-07-21] MEDS: FOLIC ACID 1 MG TABLET PO SCH (09:18)
[2019-07-21] MEDS: MULTIVITAMIN (CENTRUM) TABLET PO SCH (09:18)
[2019-07-21] MEDS: THIAMINE 200 MG/2 ML VIAL IV SCH (09:27)
[2019-07-21] MEDS ORDERED: BUPIVACAINE 0.25% /EPI 10 ML VIAL ONE (09:33)
[2019-07-21] MEDS ORDERED: HEPARIN 5,000 UNIT/1 ML VIAL ONE (09:34)
[2019-07-21] MEDS ORDERED: LIDOCAINE 1%/EPI INJ 20 ML VIAL ONE (09:34)
[2019-07-21] MEDS ORDERED: MIDAZOLAM 2 MG/2 ML VIAL ONE ×2 (11:12)
[2019-07-21] MEDS: HYDROmorphone 2 MG/1 ML VIAL IV PRN ×4 (11:15→22:41)
[2019-07-21] MEDS: LORazepam 2 MG/1 ML VIAL IV PRN ×3 (12:11→23:03)
[2019-07-21 12:36] LABS: Hepatitis B Core IgM Quant < 0.05 Index; Hepatitis B Surface Ag Quant < 0.10 Index; Hepatitis B Surface Ag Result Negative (Negative); Hepatitis C Virus Ab Quant < 0.02 Index; Hepatitis C Virus Ab Result Negative (Negative)
[2019-07-22] MEDS: PIPERACILLIN/TAZOBACTAM 3,375 MG in SODIUM CHLORIDE 0.9% 100 ML IV SCH ×3 (01:07→18:06)
[2019-07-22] MEDS: HYDROmorphone 2 MG/1 ML VIAL IV PRN ×7 (04:28→23:48)
[2019-07-22 05:31] LABS: Basophils # 0.2 10*3/uL (0.0-0.2); Basophils % 0.8 % (0.0-0.8); Eosinophils # 0.2 10*3/uL (0.0-0.87); Eosinophils % 0.7 % (0.00-10.9); Hematocrit 28.2 VOL% (35.7-47.0); Hemoglobin 8.4 GM/DL (12.0-16.0); Immature Granulocytes % 11.2 %; Immature Granulocytes Absolute 2.36 #; Lymphocytes # 1.2 10*3/uL (1.4-4.0); Lymphocytes % 5.9 % (21.3-54.2); Mean Corpuscular HGB Conc 29.8 GM/DL (32-36); Mean Corpuscular Volume 94.6 FL (87-102); Mean Platelet Volume 9.7 FL (9.6-12.0); Monocytes % 14.5 % (1.7-12.7); NRBC # 0.36 10*3/uL; Neutrophils % 66.9 % (38.7-73.9); Platelet Count 213 T/CUMM (130-400); Red Blood Count 2.98 MC/CUMM (3.8-5.5); Red Cell Distribution Width 19.4 % (9.3-17.3); White Blood Count 21.1 T/CUMM (4-12)
[2019-07-22] MEDS: LORazepam 2 MG/1 ML VIAL IV PRN ×6 (05:50→23:46)
[2019-07-22 05:55] LABS: Albumin 1.8 G/DL (3.4-5.0); Bilirubin,Total 0.7 MG/DL (0.2-1.0); Calcium 6.3 MG/DL (8.5-10.1); Osmolality,Calculated 270.9 MOS/KG (273-304); Total Protein 5.8 G/DL (6.4-8.3)
[2019-07-22 06:12] LABS: Band Neutrophils 13 % (0-10); Eosinophils 1 % (0-10); Lymphocytes 5 % (20-55); Myelocytes 1 %; Nucleated Red Blood Cells 1 (0-5); Segmented Neutrophils 65 % (50-85); Total Cells Counted 100
[2019-07-22 06:13] LABS: Hypochromasia 1+; Platelet Estimate Normal; Polychromasia Few
[2019-07-22] MEDS: ENOXAPARIN 30 MG/0.3 ML SYRINGE SUBCUT SCH (08:17)
[2019-07-22] MEDS: MULTIVITAMIN (CENTRUM) TABLET PO SCH (09:03)
[2019-07-22] MEDS: CITALOPRAM 40 MG TABLET PO SCH (09:03)
[2019-07-22] MEDS: PANTOPRAZOLE 40 MG TABLET PO SCH (09:03)
[2019-07-22] MEDS: metOLazone 5 MG TABLET PO SCH (09:03)
[2019-07-22] MEDS: ESTRADIOL 2 MG TABLET PO SCH (09:04)
[2019-07-22] MEDS: DOCUSATE SODIUM 100 MG CAPSULE PO SCH ×2 (09:04→20:11)
[2019-07-22] MEDS: FOLIC ACID 1 MG TABLET PO SCH (09:04)
[2019-07-22] MEDS: NICOTINE 14 MG/24 HR PATCH TRANSDERM SCH (09:09)
[2019-07-22] MEDS: THIAMINE 200 MG/2 ML VIAL IV SCH (09:21)
[2019-07-22] MEDS: ONDANSETRON 4 MG/2 ML VIAL IV PRN (21:05)
[2019-07-22] MEDS: PROMETHAZINE 25 MG/1 ML VIAL IM PRN (22:12)
[2019-07-23] MEDS: PIPERACILLIN/TAZOBACTAM 3,375 MG in SODIUM CHLORIDE 0.9% 100 ML IV SCH ×3 (01:53→16:40)
[2019-07-23] MEDS: LORazepam 2 MG/1 ML VIAL IV PRN (04:26)
[2019-07-23] MEDS: HYDROmorphone 2 MG/1 ML VIAL IV PRN (04:26)
[2019-07-23 06:20] LABS: Basophils % 0.1 % (0.0-0.8); Eosinophils # 0.1 10*3/uL (0.0-0.87); Eosinophils % 0.5 % (0.00-10.9); Hematocrit 28.3 VOL% (35.7-47.0); Hemoglobin 8.9 GM/DL (12.0-16.0); Immature Granulocytes % 12.4 %; Immature Granulocytes Absolute 2.94 #; Lymphocytes # 1.3 10*3/uL (1.4-4.0); Lymphocytes % 5.6 % (21.3-54.2); Mean Corpuscular HGB Conc 31.4 GM/DL (32-36); Monocytes % 10.1 % (1.7-12.7); NRBC # 0.26 10*3/uL; Neutrophils % 71.3 % (38.7-73.9); Platelet Count 240 T/CUMM (130-400); Red Blood Count 3.11 MC/CUMM (3.8-5.5); Red Cell Distribution Width 19.1 % (9.3-17.3); White Blood Count 23.8 T/CUMM (4-12)
[2019-07-23 06:37] LABS: Albumin 1.9 G/DL (3.4-5.0); Bilirubin,Total 1.1 MG/DL (0.2-1.0); Calcium 7.1 MG/DL (8.5-10.1); Osmolality,Calculated 262.2 MOS/KG (273-304); Total Protein 6.3 G/DL (6.4-8.3)
[2019-07-23] MEDS: FOLIC ACID 1 MG TABLET PO SCH (08:22)
[2019-07-23] MEDS: ESTRADIOL 2 MG TABLET PO SCH (08:22)
[2019-07-23] MEDS: CITALOPRAM 40 MG TABLET PO SCH (08:22)
[2019-07-23] MEDS: metOLazone 5 MG TABLET PO SCH (08:22)
[2019-07-23] MEDS: DOCUSATE SODIUM 100 MG CAPSULE PO SCH ×3 (08:22→20:43)
[2019-07-23] MEDS: PANTOPRAZOLE 40 MG TABLET PO SCH (08:23)
[2019-07-23] MEDS: ENOXAPARIN 30 MG/0.3 ML SYRINGE SUBCUT SCH (08:24)
[2019-07-23] MEDS: THIAMINE 200 MG/2 ML VIAL IV SCH (08:24)
[2019-07-23 08:33] LABS: Band Neutrophils 9 % (0-10); Eosinophils 2 % (0-10); Lymphocytes 7 % (20-55); Metamyelocytes 1 %; Myelocytes 3 %; Segmented Neutrophils 66 % (50-85); Total Cells Counted 100
[2019-07-23 08:34] LABS: Anisocytosis 1+; Hypochromasia 1+
[2019-07-23 08:35] LABS: Platelet Estimate Normal
[2019-07-23] MEDS: MULTIVITAMIN (CENTRUM) TABLET PO SCH (11:09)
[2019-07-23] MEDS: NICOTINE 14 MG/24 HR PATCH TRANSDERM SCH (11:09)
[2019-07-23] MEDS: ONDANSETRON 4 MG/2 ML VIAL IV PRN (16:34)
[2019-07-23] MEDS: PROMETHAZINE 25 MG/1 ML VIAL IM PRN (20:43)
[2019-07-24] MEDS: PIPERACILLIN/TAZOBACTAM 3,375 MG in SODIUM CHLORIDE 0.9% 100 ML IV SCH ×3 (01:53→18:53)
[2019-07-24] MEDS: ONDANSETRON 4 MG/2 ML VIAL IV PRN ×2 (01:58→14:48)
[2019-07-24 04:44] LABS: Basophils % 0.1 % (0.0-0.8); Eosinophils # 0.3 10*3/uL (0.0-0.87); Eosinophils % 1.1 % (0.00-10.9); Hematocrit 27.2 VOL% (35.7-47.0); Hemoglobin 8.6 GM/DL (12.0-16.0); Immature Granulocytes Absolute 2.54 #; Lymphocytes # 1.5 10*3/uL (1.4-4.0); Lymphocytes % 6.1 % (21.3-54.2); Mean Corpuscular HGB Conc 31.6 GM/DL (32-36); Monocytes % 9.6 % (1.7-12.7); NRBC # 0.14 10*3/uL; Neutrophils % 73.1 % (38.7-73.9); Platelet Count 251 T/CUMM (130-400); Red Blood Count 2.99 MC/CUMM (3.8-5.5); Red Cell Distribution Width 18.7 % (9.3-17.3); White Blood Count 25.3 T/CUMM (4-12)
[2019-07-24 05:07] LABS: Anisocytosis 1+; Band Neutrophils 9 % (0-10); Hypochromasia 1+; Lymphocytes 4 % (20-55); Metamyelocytes 1 %; Promyelocytes 2 %; Segmented Neutrophils 79 % (50-85); Total Cells Counted 100
[2019-07-24 05:08] LABS: Albumin 1.7 G/DL (3.4-5.0); Bilirubin,Total 0.5 MG/DL (0.2-1.0); Calcium 7.2 MG/DL (8.5-10.1); Osmolality,Calculated 266.2 MOS/KG (273-304); Polychromasia Slight; Total Protein 5.8 G/DL (6.4-8.3)
[2019-07-24] MEDS ORDERED: POTASSIUM CHLORIDE 20 MEQ TABLET PO PRN (08:02)
[2019-07-24] MEDS: metOLazone 5 MG TABLET PO SCH (09:02)
[2019-07-24] MEDS: DOCUSATE SODIUM 100 MG CAPSULE PO SCH ×2 (09:02→20:35)
[2019-07-24] MEDS: ESTRADIOL 2 MG TABLET PO SCH (09:02)
[2019-07-24] MEDS: PANTOPRAZOLE 40 MG TABLET PO SCH (09:02)
[2019-07-24] MEDS: CITALOPRAM 40 MG TABLET PO SCH (09:02)
[2019-07-24] MEDS: ENOXAPARIN 30 MG/0.3 ML SYRINGE SUBCUT SCH (09:02)
[2019-07-24] MEDS: MULTIVITAMIN (CENTRUM) TABLET PO SCH (09:02)
[2019-07-24] MEDS: FOLIC ACID 1 MG TABLET PO SCH (09:02)
[2019-07-24] MEDS: THIAMINE 200 MG/2 ML VIAL IV SCH (09:03)
[2019-07-24] MEDS: PROMETHAZINE 25 MG/1 ML VIAL IM PRN ×3 (09:05→23:43)
[2019-07-24] MEDS: NICOTINE 14 MG/24 HR PATCH TRANSDERM SCH (09:29)
[2019-07-24] MEDS ORDERED: HEPARIN 10,000 UNIT/10 ML VIAL IV SCH (14:30)
[2019-07-25] MEDS: PIPERACILLIN/TAZOBACTAM 3,375 MG in SODIUM CHLORIDE 0.9% 100 ML IV SCH ×3 (01:20→16:44)
[2019-07-25] MEDS: PROMETHAZINE 25 MG/1 ML VIAL IM PRN ×5 (03:52→21:17)
[2019-07-25 06:02] LABS: Basophils # 0.2 10*3/uL (0.0-0.2); Basophils % 0.7 % (0.0-0.8); Eosinophils # 0.3 10*3/uL (0.0-0.87); Eosinophils % 1.1 % (0.00-10.9); Hematocrit 24.7 VOL% (35.7-47.0); Hemoglobin 7.7 GM/DL (12.0-16.0); Immature Granulocytes % 7.2 %; Immature Granulocytes Absolute 1.77 #; Lymphocytes # 1.7 10*3/uL (1.4-4.0); Lymphocytes % 7.1 % (21.3-54.2); Mean Corpuscular HGB Conc 31.2 GM/DL (32-36); Mean Corpuscular Volume 90.5 FL (87-102); Monocytes % 9.1 % (1.7-12.7); NRBC # 0.05 10*3/uL; Neutrophils % 74.8 % (38.7-73.9); Platelet Count 285 T/CUMM (130-400); Red Blood Count 2.73 MC/CUMM (3.8-5.5); Red Cell Distribution Width 19.2 % (9.3-17.3); White Blood Count 24.5 T/CUMM (4-12)
[2019-07-25 06:29] LABS: Albumin 1.6 G/DL (3.4-5.0); Bilirubin,Total 0.8 MG/DL (0.2-1.0); Calcium 7.4 MG/DL (8.5-10.1); Osmolality,Calculated 269.4 MOS/KG (273-304); Total Protein 5.2 G/DL (6.4-8.3)
[2019-07-25 07:14] LABS: Band Neutrophils 9 % (0-10); Eosinophils 1 % (0-10); Lymphocytes 8 % (20-55); Metamyelocytes 1 %; Myelocytes 1 %; Segmented Neutrophils 71 % (50-85); Total Cells Counted 100
[2019-07-25 07:15] LABS: Anisocytosis 1+; Hypochromasia 1+
[2019-07-25 07:16] LABS: Platelet Estimate Normal
[2019-07-25] MEDS: NICOTINE 14 MG/24 HR PATCH TRANSDERM SCH (08:04)
[2019-07-25] MEDS: PANTOPRAZOLE 40 MG TABLET PO SCH (08:05)
[2019-07-25] MEDS: FOLIC ACID 1 MG TABLET PO SCH (08:05)
[2019-07-25] MEDS: metOLazone 5 MG TABLET PO SCH (08:05)
[2019-07-25] MEDS: ENOXAPARIN 30 MG/0.3 ML SYRINGE SUBCUT SCH (08:06)
[2019-07-25] MEDS: CITALOPRAM 40 MG TABLET PO SCH (08:06)
[2019-07-25] MEDS: ESTRADIOL 2 MG TABLET PO SCH (08:06)
[2019-07-25] MEDS: MULTIVITAMIN (CENTRUM) TABLET PO SCH (08:06)
[2019-07-25] MEDS: THIAMINE 200 MG/2 ML VIAL IV SCH (08:07)
[2019-07-25] MEDS: DOCUSATE SODIUM 100 MG CAPSULE PO SCH ×2 (08:08→21:16)
[2019-07-25 08:09] LABS: Sedimentation Rate-Westergren 123 MM/HR (0-20)
[2019-07-25] MEDS: POTASSIUM CHLORIDE RIDER 10 MEQ in PREMIX 1 EACH IV SCH ×3 (12:18→14:22)
[2019-07-25 18:50] LABS: Apearance,Urine Slightly Hazy (Clear); Bilirubin,Urine Negative (Negative); Blood, Urine Small mg/dL (Negative); Glucose,Urine (UA) Negative (Negative); Ketones,Urine Negative (Negative); Mucus,Urine Occasional /LPF (Occasional); Nitrite,Urine Negative (Negative); Protein,Urine Negative; RBC,Urine 5 /HPF (0-4); Squamous Epithelial Cell,Urine Occasional /HPF (0-10); Urine Color Yellow (Yellow); Urine Specific Gravity 1.009 (1.001-1.035); Urine Urobilinogen < 2.0 EU/DL (0.2-1.0); WBC,Urine 1 /HPF (0-6)
[2019-07-26] MEDS: PIPERACILLIN/TAZOBACTAM 3,375 MG in SODIUM CHLORIDE 0.9% 100 ML IV SCH ×3 (01:44→17:10)
[2019-07-26] MEDS: PROMETHAZINE 25 MG/1 ML VIAL IM PRN ×4 (01:55→17:19)
[2019-07-26 06:04] LABS: Basophils # 0.1 10*3/uL (0.0-0.2); Basophils % 0.6 % (0.0-0.8); Eosinophils # 0.1 10*3/uL (0.0-0.87); Eosinophils % 0.6 % (0.00-10.9); Hematocrit 26.4 VOL% (35.7-47.0); Hemoglobin 8.5 GM/DL (12.0-16.0); Immature Granulocytes % 4.5 %; Immature Granulocytes Absolute 1.07 #; Lymphocytes # 1.2 10*3/uL (1.4-4.0); Lymphocytes % 5.3 % (21.3-54.2); Mean Corpuscular HGB Conc 32.2 GM/DL (32-36); Mean Corpuscular Volume 88.6 FL (87-102); Mean Platelet Volume 10.3 FL (9.6-12.0); Monocytes % 4.1 % (1.7-12.7); Neutrophils % 84.9 % (38.7-73.9); Platelet Count 353 T/CUMM (130-400); Red Blood Count 2.98 MC/CUMM (3.8-5.5); Red Cell Distribution Width 19.7 % (9.3-17.3); White Blood Count 23.6 T/CUMM (4-12)
[2019-07-26 06:22] LABS: Albumin 1.5 G/DL (3.4-5.0); Bilirubin,Total 0.9 MG/DL (0.2-1.0); Calcium 7.7 MG/DL (8.5-10.1); Osmolality,Calculated 269.7 MOS/KG (273-304); Total Protein 5.4 G/DL (6.4-8.3)
[2019-07-26 06:29] LABS: Band Neutrophils 6 % (0-10); Hypochromasia 1+; Lymphocytes 1 % (20-55); Platelet Estimate Adequate; Segmented Neutrophils 86 % (50-85); Total Cells Counted 100
[2019-07-26] MEDS: PANTOPRAZOLE 40 MG TABLET PO SCH (08:55)
[2019-07-26] MEDS: ESTRADIOL 2 MG TABLET PO SCH (08:55)
[2019-07-26] MEDS: CITALOPRAM 40 MG TABLET PO SCH (08:55)
[2019-07-26] MEDS: ENOXAPARIN 30 MG/0.3 ML SYRINGE SUBCUT SCH (08:55)
[2019-07-26] MEDS: NICOTINE 14 MG/24 HR PATCH TRANSDERM SCH (08:55)
[2019-07-26] MEDS: MULTIVITAMIN (CENTRUM) TABLET PO SCH (08:55)
[2019-07-26] MEDS: metOLazone 5 MG TABLET PO SCH (08:55)
[2019-07-26] MEDS: DOCUSATE SODIUM 100 MG CAPSULE PO SCH ×2 (08:56→20:18)
[2019-07-26] MEDS: FOLIC ACID 1 MG TABLET PO SCH (08:56)
[2019-07-26] MEDS: THIAMINE 200 MG/2 ML VIAL IV SCH (08:56)
[2019-07-26] MEDS: POTASSIUM CHLORIDE RIDER 10 MEQ in PREMIX 1 EACH IV SCH ×4 (09:22→13:02)
[2019-07-26] MEDS: ONDANSETRON 4 MG/2 ML VIAL IV PRN (21:28)
[2019-07-27] MEDS: PIPERACILLIN/TAZOBACTAM 3,375 MG in SODIUM CHLORIDE 0.9% 100 ML IV SCH (00:38)
[2019-07-27] MEDS: PROMETHAZINE 25 MG/1 ML VIAL IM PRN ×4 (00:47→21:59)
[2019-07-27 06:03] LABS: Basophils # 0.1 10*3/uL (0.0-0.2); Basophils % 0.5 % (0.0-0.8); Eosinophils # 0.2 10*3/uL (0.0-0.87); Eosinophils % 1.2 % (0.00-10.9); Hematocrit 26.9 VOL% (35.7-47.0); Hemoglobin 8.7 GM/DL (12.0-16.0); Immature Granulocytes % 4.7 %; Immature Granulocytes Absolute 0.97 #; Lymphocytes # 1.3 10*3/uL (1.4-4.0); Lymphocytes % 6.2 % (21.3-54.2); Mean Corpuscular HGB Conc 32.3 GM/DL (32-36); Mean Corpuscular Volume 87.3 FL (87-102); Mean Platelet Volume 10.2 FL (9.6-12.0); Monocytes % 4.4 % (1.7-12.7); Platelet Count 392 T/CUMM (130-400); Red Blood Count 3.08 MC/CUMM (3.8-5.5); Red Cell Distribution Width 19.9 % (9.3-17.3); White Blood Count 20.5 T/CUMM (4-12)
[2019-07-27 06:27] LABS: Eosinophils 2 % (0-10); Lymphocytes 10 % (20-55); Platelet Estimate Adequate; Segmented Neutrophils 87 % (50-85); Total Cells Counted 100
[2019-07-27 06:28] LABS: Burr Cells Slight; Hypochromasia 1+; Ovalocytes Slight
[2019-07-27 06:31] LABS: Albumin 1.6 G/DL (3.4-5.0); Bilirubin,Total 1.4 MG/DL (0.2-1.0); Calcium 7.6 MG/DL (8.5-10.1); Osmolality,Calculated 270.7 MOS/KG (273-304); Total Protein 5.4 G/DL (6.4-8.3)
[2019-07-27] MEDS ORDERED: LEVOFLOXACIN INJ 500 MG in PREMIX 1 EACH IV ONE (08:15)
[2019-07-27] MEDS: FOLIC ACID 1 MG TABLET PO SCH (08:25)
[2019-07-27] MEDS: ESTRADIOL 2 MG TABLET PO SCH (08:25)
[2019-07-27] MEDS: CITALOPRAM 40 MG TABLET PO SCH (08:25)
[2019-07-27] MEDS: MULTIVITAMIN (CENTRUM) TABLET PO SCH (08:25)
[2019-07-27] MEDS: metOLazone 5 MG TABLET PO SCH (08:26)
[2019-07-27] MEDS: THIAMINE 200 MG/2 ML VIAL IV SCH (08:27)
[2019-07-27] MEDS: NICOTINE 14 MG/24 HR PATCH TRANSDERM SCH (08:32)
[2019-07-27] MEDS: ENOXAPARIN 30 MG/0.3 ML SYRINGE SUBCUT SCH (08:34)
[2019-07-27] MEDS: ONDANSETRON 4 MG/2 ML VIAL IV PRN ×2 (08:46→16:06)
[2019-07-27] MEDS: POTASSIUM CHLORIDE RIDER 10 MEQ in PREMIX 1 EACH IV SCH ×3 (08:57→11:00)
[2019-07-27] MEDS: DOCUSATE SODIUM 100 MG CAPSULE PO SCH ×2 (10:47→20:14)
[2019-07-27] MEDS: PANTOPRAZOLE 40 MG TABLET PO SCH (10:47)
[2019-07-28] MEDS: ONDANSETRON 4 MG/2 ML VIAL IV PRN ×4 (01:22→18:29)
[2019-07-28] MEDS: PROMETHAZINE 25 MG/1 ML VIAL IM PRN ×3 (04:06→20:32)
[2019-07-28 05:25] LABS: Basophils # 0.1 10*3/uL (0.0-0.2); Basophils % 0.6 % (0.0-0.8); Eosinophils # 0.2 10*3/uL (0.0-0.87); Eosinophils % 1.4 % (0.00-10.9); Hematocrit 25.3 VOL% (35.7-47.0); Hemoglobin 8.4 GM/DL (12.0-16.0); Immature Granulocytes % 6.3 %; Immature Granulocytes Absolute 1.02 #; Lymphocytes # 1.7 10*3/uL (1.4-4.0); Lymphocytes % 10.3 % (21.3-54.2); Mean Corpuscular HGB Conc 33.2 GM/DL (32-36); Mean Corpuscular Volume 86.3 FL (87-102); Mean Platelet Volume 10.4 FL (9.6-12.0); Monocytes % 6.7 % (1.7-12.7); Neutrophils % 74.7 % (38.7-73.9); Platelet Count 453 T/CUMM (130-400); Red Blood Count 2.93 MC/CUMM (3.8-5.5); Red Cell Distribution Width 20.3 % (9.3-17.3); White Blood Count 16.1 T/CUMM (4-12)
[2019-07-28 05:50] LABS: Band Neutrophils 4 % (0-10); Lymphocytes 3 % (20-55); Segmented Neutrophils 82 % (50-85); Total Cells Counted 100; Toxic Granulation 1+
[2019-07-28 05:51] LABS: Anisocytosis 1+
[2019-07-28 05:52] LABS: Acanthocytes Few; Platelet Estimate Normal; Polychromasia 1+; Target Cells Few
[2019-07-28 06:04] LABS: Albumin 1.7 G/DL (3.4-5.0); Calcium 7.9 MG/DL (8.5-10.1); Osmolality,Calculated 264.9 MOS/KG (273-304); Total Protein 5.1 G/DL (6.4-8.3)
[2019-07-28] MEDS: MULTIVITAMIN (CENTRUM) TABLET PO SCH (08:26)
[2019-07-28] MEDS: FOLIC ACID 1 MG TABLET PO SCH (08:26)
[2019-07-28] MEDS: metOLazone 5 MG TABLET PO SCH (08:26)
[2019-07-28] MEDS ORDERED: INDOMETHACIN SUPP 50 MG SUPP RECTAL ONE ×2 (08:26→09:03)
[2019-07-28] MEDS: CITALOPRAM 40 MG TABLET PO SCH (08:26)
[2019-07-28] MEDS: PANTOPRAZOLE 40 MG TABLET PO SCH (08:26)
[2019-07-28] MEDS: ESTRADIOL 2 MG TABLET PO SCH (08:26)
[2019-07-28] MEDS: DOCUSATE SODIUM 100 MG CAPSULE PO SCH ×2 (08:27→21:00)
[2019-07-28 08:56] LABS: INR 1.9
[2019-07-28] MEDS: NICOTINE 14 MG/24 HR PATCH TRANSDERM SCH (09:02)
[2019-07-28] MEDS: THIAMINE 200 MG/2 ML VIAL IV SCH (09:02)
[2019-07-28] MEDS: SODIUM CHLORIDE 0.9% 1,000 ML IV SCH (10:05)
[2019-07-28] MEDS: LACTATED RINGERS 1,000 ML IV SCH ×2 (10:05→17:27)
[2019-07-28] MEDS ORDERED: fentaNYL 100 MCG/2 ML VIAL ONE (10:09)
[2019-07-28] MEDS ORDERED: MIDAZOLAM 2 MG/2 ML VIAL ONE (10:33)
[2019-07-28] MEDS ORDERED: GLUCAGON 1 MG VIAL ONE (10:41)
[2019-07-28] MEDS ORDERED: ONDANSETRON 4 MG/2 ML VIAL ONE ×2 (11:42→11:59)
[2019-07-28] MEDS ORDERED: LIDOCAINE 2% 5 ML VIAL ONE (11:59)
[2019-07-28] MEDS ORDERED: DEXAMETHASONE 4 MG/1 ML VIAL ONE (11:59)
[2019-07-28] MEDS ORDERED: propofoL 200 MG/20 ML VIAL IV ONE (11:59)
[2019-07-28] MEDS ORDERED: GLYCOPYRROLATE 0.4 MG/2 ML VIAL ONE (11:59)
[2019-07-28] MEDS ORDERED: PHENYLEPHRINE 1 MG/10 ML SYRINGE IV ONE (12:00)
[2019-07-28] MEDS ORDERED: NEOSTIGMINE 10 MG/10 ML VIAL ONE (12:00)
[2019-07-28] MEDS ORDERED: ROCURONIUM 100 MG/10 ML VIAL IV ONE (12:00)
[2019-07-29] MEDS: PROMETHAZINE 25 MG/1 ML VIAL IM PRN ×5 (00:37→20:57)
[2019-07-29 05:02] LABS: Basophils # 0.1 10*3/uL (0.0-0.2); Basophils % 0.4 % (0.0-0.8); Eosinophils % 0.1 % (0.00-10.9); Hematocrit 26.1 VOL% (35.7-47.0); Hemoglobin 8.2 GM/DL (12.0-16.0); Immature Granulocytes % 10.8 %; Immature Granulocytes Absolute 1.81 #; Lymphocytes # 1.6 10*3/uL (1.4-4.0); Lymphocytes % 9.3 % (21.3-54.2); Mean Corpuscular HGB Conc 31.4 GM/DL (32-36); Mean Corpuscular Volume 89.4 FL (87-102); Mean Platelet Volume 10.3 FL (9.6-12.0); Monocytes % 7.6 % (1.7-12.7); NRBC # 0.05 10*3/uL; Neutrophils % 71.8 % (38.7-73.9); Platelet Count 584 T/CUMM (130-400); Red Blood Count 2.92 MC/CUMM (3.8-5.5); Red Cell Distribution Width 21.4 % (9.3-17.3); White Blood Count 16.8 T/CUMM (4-12)
[2019-07-29 05:37] LABS: Albumin 1.9 G/DL (3.4-5.0); Bilirubin,Total 1.5 MG/DL (0.2-1.0); Osmolality,Calculated 262.5 MOS/KG (273-304)
[2019-07-29 06:17] LABS: Sedimentation Rate-Westergren 117 MM/HR (0-20)
[2019-07-29 09:14] LABS: Anisocytosis 1+; Hypochromasia Slight; Lymphocytes 3 % (20-55); Metamyelocytes 1 %; Polychromasia Slight; Segmented Neutrophils 87 % (50-85); Target Cells Slight; Total Cells Counted 100
[2019-07-29 09:15] LABS: Platelet Estimate Increased
[2019-07-29] MEDS: DOCUSATE SODIUM 100 MG CAPSULE PO SCH ×2 (10:07→21:08)
[2019-07-29] MEDS: CITALOPRAM 40 MG TABLET PO SCH (10:07)
[2019-07-29] MEDS: metOLazone 5 MG TABLET PO SCH (10:07)
[2019-07-29] MEDS: MULTIVITAMIN (CENTRUM) TABLET PO SCH (10:07)
[2019-07-29] MEDS: PANTOPRAZOLE 40 MG TABLET PO SCH (10:08)
[2019-07-29] MEDS: ESTRADIOL 2 MG TABLET PO SCH (10:08)
[2019-07-29] MEDS: FOLIC ACID 1 MG TABLET PO SCH (10:08)
[2019-07-29] MEDS: SODIUM CHLORIDE 0.9% 1,000 ML IV SCH (10:08)
[2019-07-29] MEDS: NICOTINE 14 MG/24 HR PATCH TRANSDERM SCH (10:13)
[2019-07-29] MEDS: THIAMINE 200 MG/2 ML VIAL IV SCH (10:13)
[2019-07-29] MEDS: LEVOFLOXACIN INJ 500 MG in PREMIX 1 EACH IV SCH (10:14)
[2019-07-29] MEDS: SODIUM BICARBONATE 650 MG TABLET PO SCH (20:57)
[2019-07-30] MEDS: PROMETHAZINE 25 MG/1 ML VIAL IM PRN ×4 (01:00→20:47)
[2019-07-30 04:45] LABS: Basophils % 0.2 % (0.0-0.8); Eosinophils # 0.1 10*3/uL (0.0-0.87); Eosinophils % 0.8 % (0.00-10.9); Hematocrit 26.1 VOL% (35.7-47.0); Hemoglobin 7.9 GM/DL (12.0-16.0); Immature Granulocytes % 7.1 %; Immature Granulocytes Absolute 1.11 #; Lymphocytes # 2.1 10*3/uL (1.4-4.0); Lymphocytes % 13.3 % (21.3-54.2); Mean Corpuscular HGB Conc 30.3 GM/DL (32-36); Mean Corpuscular Volume 92.2 FL (87-102); Mean Platelet Volume 9.7 FL (9.6-12.0); Monocytes % 7.5 % (1.7-12.7); NRBC # 0.05 10*3/uL; Neutrophils % 71.1 % (38.7-73.9); Platelet Count 609 T/CUMM (130-400); Red Blood Count 2.83 MC/CUMM (3.8-5.5); Red Cell Distribution Width 21.7 % (9.3-17.3); White Blood Count 15.6 T/CUMM (4-12)
[2019-07-30 05:11] LABS: Calcium 7.6 MG/DL (8.5-10.1); Osmolality,Calculated 264.8 MOS/KG (273-304)
[2019-07-30 06:12] LABS: Band Neutrophils 1 % (0-10); Eosinophils 2 % (0-10); Lymphocytes 14 % (20-55); Myelocytes 1 %; Nucleated Red Blood Cells 1 (0-5); Segmented Neutrophils 71 % (50-85); Total Cells Counted 100
[2019-07-30 06:13] LABS: Anisocytosis 1+; Hypochromasia 1+; Target Cells Few
[2019-07-30 06:14] LABS: Platelet Estimate Increased
[2019-07-30] MEDS: SODIUM BICARBONATE 650 MG TABLET PO SCH ×2 (09:29→20:45)
[2019-07-30] MEDS: ESTRADIOL 2 MG TABLET PO SCH (09:29)
[2019-07-30] MEDS: FOLIC ACID 1 MG TABLET PO SCH (09:29)
[2019-07-30] MEDS: DOCUSATE SODIUM 100 MG CAPSULE PO SCH ×2 (09:29→20:46)
[2019-07-30] MEDS: MULTIVITAMIN (CENTRUM) TABLET PO SCH (09:30)
[2019-07-30] MEDS: CITALOPRAM 40 MG TABLET PO SCH (09:30)
[2019-07-30] MEDS: metOLazone 5 MG TABLET PO SCH (09:30)
[2019-07-30] MEDS: PANTOPRAZOLE 40 MG TABLET PO SCH (09:30)
[2019-07-30] MEDS: SODIUM CHLORIDE 0.9% 1,000 ML IV SCH (09:31)
[2019-07-30] MEDS: THIAMINE 200 MG/2 ML VIAL IV SCH (09:31)
[2019-07-30] MEDS: ONDANSETRON 4 MG/2 ML VIAL IV PRN (09:31)
[2019-07-30] MEDS: NICOTINE 14 MG/24 HR PATCH TRANSDERM SCH (09:31)
[2019-07-31] MEDS: ONDANSETRON 4 MG/2 ML VIAL IV PRN ×2 (00:54→08:10)
[2019-07-31] MEDS: PROMETHAZINE 25 MG/1 ML VIAL IM PRN ×2 (05:10→09:25)
[2019-07-31] MEDS: LEVOFLOXACIN INJ 500 MG in PREMIX 1 EACH IV SCH (08:09)
[2019-07-31] MEDS: THIAMINE 200 MG/2 ML VIAL IV SCH (08:10)
[2019-07-31] MEDS: PANTOPRAZOLE 40 MG TABLET PO SCH (08:11)
[2019-07-31] MEDS: CITALOPRAM 40 MG TABLET PO SCH (08:11)
[2019-07-31] MEDS: DOCUSATE SODIUM 100 MG CAPSULE PO SCH (08:11)
[2019-07-31] MEDS: ESTRADIOL 2 MG TABLET PO SCH (08:11)
[2019-07-31] MEDS: NICOTINE 14 MG/24 HR PATCH TRANSDERM SCH (08:11)
[2019-07-31] MEDS: MULTIVITAMIN (CENTRUM) TABLET PO SCH (08:12)
[2019-07-31] MEDS: metOLazone 5 MG TABLET PO SCH (08:12)
[2019-07-31] MEDS: FOLIC ACID 1 MG TABLET PO SCH (08:12)
[2019-07-31] MEDS: SODIUM BICARBONATE 650 MG TABLET PO SCH (08:12)
[2019-07-31 08:59] LABS: Basophils # 0.1 10*3/uL (0.0-0.2); Basophils % 0.3 % (0.0-0.8); Eosinophils # 0.3 10*3/uL (0.0-0.87); Eosinophils % 1.6 % (0.00-10.9); Hematocrit 26.4 VOL% (35.7-47.0); Hemoglobin 8.3 GM/DL (12.0-16.0); Immature Granulocytes % 6.2 %; Immature Granulocytes Absolute 1.12 #; Lymphocytes # 1.8 10*3/uL (1.4-4.0); Mean Corpuscular HGB Conc 31.4 GM/DL (32-36); Mean Corpuscular Volume 89.5 FL (87-102); Monocytes % 4.6 % (1.7-12.7); Neutrophils % 77.3 % (38.7-73.9); Platelet Count 687 T/CUMM (130-400); Red Blood Count 2.95 MC/CUMM (3.8-5.5); Red Cell Distribution Width 21.8 % (9.3-17.3); White Blood Count 18.2 T/CUMM (4-12)
[2019-07-31 09:11] LABS: Calcium 7.8 MG/DL (8.5-10.1); Osmolality,Calculated 277.7 MOS/KG (273-304); Total Protein 5.9 G/DL (6.4-8.3)
[2019-07-31 09:24] LABS: Band Neutrophils 1 % (0-10); Eosinophils 1 % (0-10); Lymphocytes 6 % (20-55); Platelet Estimate Increased; Segmented Neutrophils 88 % (50-85); Total Cells Counted 100
[2019-07-31 09:25] LABS: Hypochromasia 1+; Ovalocytes Slight
[2019-07-31 12:03] VITALS: BP 131/78
[2019-07-31] MEDS: SODIUM CHLORIDE 0.9% 1,000 ML IV SCH (12:43)
== END 2019-07-31 13:10 | disposition home or self-care (01) | DRG 438 ==
LOC: N.ED 07:40 → N.EDINP 10:35 → N.3E 10:54 → N.ICU 07-21 03:25 → N.3E 07-23 15:14
PROVIDERS: ADMIT Family Medicine; ATTEND Family Medicine
PROC: ERCPWSP (ICD-10-PCS; 2019-07-28 12:05)

== ENCOUNTER 2019-08-12 05:13 | Inpatient (IN) ==
[2019-08-12] MEDS ORDERED: SODIUM CHLORIDE 0.9% 500 ML IV STA ×2 (06:15→08:14)
[2019-08-12] MEDS ORDERED: HYDROmorphone 2 MG/1 ML VIAL IV STA ×2 (06:15→07:07)
[2019-08-12] MEDS ORDERED: ONDANSETRON 4 MG/2 ML VIAL IV STA (06:15)
[2019-08-12 06:20] LABS: Basophils # 0.1 10*3/uL (0.0-0.2); Basophils % 0.8 % (0.0-0.8); Eosinophils # 0.1 10*3/uL (0.0-0.87); Eosinophils % 1.3 % (0.00-10.9); Hematocrit 24.5 VOL% (35.7-47.0); Hemoglobin 7.7 GM/DL (12.0-16.0); Immature Granulocytes % 2.9 %; Immature Granulocytes Absolute 0.25 #; Lymphocytes # 1.8 10*3/uL (1.4-4.0); Lymphocytes % 20.8 % (21.3-54.2); Mean Corpuscular HGB Conc 31.4 GM/DL (32-36); Mean Corpuscular Volume 96.1 FL (87-102); Mean Platelet Volume 10.2 FL (9.6-12.0); Monocytes % 11.6 % (1.7-12.7); NRBC # 0.02 10*3/uL; Neutrophils % 62.6 % (38.7-73.9); Platelet Count 752 T/CUMM (130-400); Red Blood Count 2.55 MC/CUMM (3.8-5.5); Red Cell Distribution Width 25.8 % (9.3-17.3); White Blood Count 8.7 T/CUMM (4-12)
[2019-08-12 07:27] LABS: Macrocytosis 2+; Platelet Estimate Increased; Polychromasia Slight
[2019-08-12 07:28] LABS: Anisocytosis 2+; Hypochromasia Slight; Target Cells Few
[2019-08-12] MEDS ORDERED: ACETAMINOPHEN 325 MG TABLET PO PRN (08:15)
[2019-08-12 08:22] LABS: Alanine Aminotransferase 29 U/L (13-56); Albumin 1.7 G/DL (3.4-5.0); Alkaline Phosphatase 311 U/L (45-117); Aspartate Amino Transferase 42 U/L (0-37); Blood Urea Nitrogen 11 MG/DL (7-18); Calcium 8.1 MG/DL (8.5-10.1); Estimated Glom Filtration Rate 61 ML/MIN; Glucose 137 MG/DL (74-106); Osmolality,Calculated 262.7 MOS/KG (273-304); Total Protein 6.3 G/DL (6.4-8.3)
[2019-08-12] MEDS: SODIUM CHLORIDE 0.45% 1,000 ML IV SCH ×3 (10:35→19:51)
[2019-08-12] MEDS: ENOXAPARIN 30 MG/0.3 ML SYRINGE SUBCUT SCH (10:35)
[2019-08-12] MEDS: PANTOPRAZOLE 40 MG TABLET PO SCH (10:35)
[2019-08-12] MEDS: FOLIC ACID 1 MG TABLET PO SCH (10:35)
[2019-08-12 11:23] LABS: Apearance,Urine CLOUDY (Clear); Bacteria,Urine Few /HPF (Few); Bilirubin,Urine Negative (Negative); Blood, Urine Moderate mg/dL (Negative); Calcium Oxalate Crystals,Urine Occasional /HPF (Few); Glucose,Urine (UA) Negative (Negative); Hyaline Casts,Urine 58 /LPF (0-3); Ketones,Urine Negative (Negative); Mucus,Urine Occasional /LPF (Occasional); Nitrite,Urine Negative (Negative); Protein,Urine Negative; RBC,Urine 9 /HPF (0-4); Squamous Epithelial Cell,Urine Many /HPF (0-10); Urine Specific Gravity 1.021 (1.001-1.035); Urine Urobilinogen < 2.0 EU/DL (0.2-1.0); WBC,Urine 15 /HPF (0-6)
[2019-08-12 11:24] LABS: Urine Color Dark yellow (Yellow)
[2019-08-12] MEDS: HYDROmorphone 2 MG/1 ML VIAL IV PRN ×3 (13:42→21:40)
[2019-08-12] MEDS: ONDANSETRON 4 MG/2 ML VIAL IV PRN (17:42)
[2019-08-13] MEDS: HYDROmorphone 2 MG/1 ML VIAL IV PRN ×7 (02:21→21:57)
[2019-08-13] MEDS: ONDANSETRON 4 MG/2 ML VIAL IV PRN ×4 (02:23→21:59)
[2019-08-13 03:25] LABS: Basophils # 0.1 10*3/uL (0.0-0.2); Basophils % 0.6 % (0.0-0.8); Eosinophils # 0.3 10*3/uL (0.0-0.87); Eosinophils % 2.4 % (0.00-10.9); Hematocrit 21.1 VOL% (35.7-47.0); Hemoglobin 6.5 GM/DL (12.0-16.0); Immature Granulocytes % 3.9 %; Immature Granulocytes Absolute 0.46 #; Lymphocytes # 2.5 10*3/uL (1.4-4.0); Lymphocytes % 21.2 % (21.3-54.2); Mean Corpuscular HGB Conc 30.8 GM/DL (32-36); Mean Corpuscular Volume 97.2 FL (87-102); Mean Platelet Volume 9.1 FL (9.6-12.0); Monocytes % 14.3 % (1.7-12.7); Neutrophils % 57.6 % (38.7-73.9); Platelet Count 543 T/CUMM (130-400); Red Blood Count 2.17 MC/CUMM (3.8-5.5); Red Cell Distribution Width 25.2 % (9.3-17.3); White Blood Count 11.7 T/CUMM (4-12)
[2019-08-13] MEDS: SODIUM CHLORIDE 0.45% 1,000 ML IV SCH ×3 (03:59→12:38)
[2019-08-13 04:13] LABS: Risk Ratio 6.27; VLDL CHOLESTEROL 25.2 MG/DL
[2019-08-13 04:41] LABS: Band Neutrophils 2 % (0-10); Eosinophils 2 % (0-10); Lymphocytes 24 % (20-55); Myelocytes 1 %; Segmented Neutrophils 63 % (50-85); Total Cells Counted 100
[2019-08-13 04:42] LABS: Anisocytosis 1+; Hypochromasia 1+; Platelet Estimate Increased; Target Cells 1+
[2019-08-13] MEDS: CITALOPRAM 40 MG TABLET PO SCH (08:14)
[2019-08-13] MEDS: ENOXAPARIN 30 MG/0.3 ML SYRINGE SUBCUT SCH (08:15)
[2019-08-13] MEDS: PANTOPRAZOLE 40 MG TABLET PO SCH (08:15)
[2019-08-13] MEDS: FOLIC ACID 1 MG TABLET PO SCH (08:15)
[2019-08-13] MEDS ORDERED: SODIUM CHLORIDE 0.9% 1,000 ML IV PRN (09:37)
[2019-08-13] MEDS ORDERED: FUROSEMIDE 40 MG/4 ML VIAL IV ONE ×2 (09:38→16:00)
[2019-08-14] MEDS: SODIUM CHLORIDE 0.45% 1,000 ML IV SCH ×4 (00:48→16:30)
[2019-08-14] MEDS: HYDROmorphone 2 MG/1 ML VIAL IV PRN ×3 (01:48→08:18)
[2019-08-14] MEDS: ONDANSETRON 4 MG/2 ML VIAL IV PRN ×2 (05:33→11:25)
[2019-08-14 06:43] LABS: Basophils # 0.1 10*3/uL (0.0-0.2); Basophils % 0.9 % (0.0-0.8); Eosinophils # 0.3 10*3/uL (0.0-0.87); Eosinophils % 1.9 % (0.00-10.9); Hematocrit 28.4 VOL% (35.7-47.0); Immature Granulocytes % 6.3 %; Immature Granulocytes Absolute 0.88 #; Lymphocytes # 2.3 10*3/uL (1.4-4.0); Lymphocytes % 16.7 % (21.3-54.2); Mean Corpuscular HGB Conc 31.7 GM/DL (32-36); Mean Corpuscular Volume 93.7 FL (87-102); Mean Platelet Volume 9.2 FL (9.6-12.0); Monocytes % 11.1 % (1.7-12.7); Neutrophils % 63.1 % (38.7-73.9); Platelet Count 545 T/CUMM (130-400); Red Blood Count 3.03 MC/CUMM (3.8-5.5); Red Cell Distribution Width 24.4 % (9.3-17.3); White Blood Count 13.9 T/CUMM (4-12)
[2019-08-14 07:03] LABS: Calcium 7.9 MG/DL (8.5-10.1); Osmolality,Calculated 265.4 MOS/KG (273-304)
[2019-08-14 07:09] LABS: Band Neutrophils 1 % (0-10); Eosinophils 2 % (0-10); Hypochromasia 1+; Lymphocytes 13 % (20-55); Macrocytosis Slight; Platelet Estimate Adequate; Polychromasia Slight; Segmented Neutrophils 74 % (50-85); Total Cells Counted 100
[2019-08-14] MEDS ORDERED: ESTRADIOL 2 MG TABLET PO SCH (09:00)
[2019-08-14] MEDS ORDERED: MULTIVITAMIN (CENTRUM) TABLET PO SCH (09:00)
[2019-08-14] MEDS: CITALOPRAM 40 MG TABLET PO SCH (09:52)
[2019-08-14] MEDS: FOLIC ACID 1 MG TABLET PO SCH (09:52)
[2019-08-14] MEDS: PANTOPRAZOLE 40 MG TABLET PO SCH (09:53)
[2019-08-14] MEDS: ENOXAPARIN 30 MG/0.3 ML SYRINGE SUBCUT SCH (09:53)
[2019-08-14] MEDS: HYDROmorphone 2 MG/1 ML VIAL IM PRN ×3 (11:28→17:24)
[2019-08-14 18:06] VITALS: BP 137/66
== END 2019-08-14 20:04 | disposition designated cancer center or children's hospital (05) | DRG 439 ==
LOC: N.ED 05:13 → N.EDINP 08:15 → N.3E 10:00
PROVIDERS: ADMIT Family Medicine; ATTEND Family Medicine